=== PATIENT | female | born 1945 | race Caucasian/White ===

== ENCOUNTER → 2016-09-18 | Outpatient (CLI) | payer OTHER ==
[~2016-09-18] MED LIST: B121000 MCG/1 IM; COREG6.25 MG; COUMADIN2 MG PO; DOXYCYLINE50 MG PO; DULCOLAX10 M1 R; K-DUR 1010 MEQ; LASIX20 MG; LOVENOX30 MG/0.3 SC; MILK OF MA400 MG/51 PO; NKHM; NORCO 325 MG-51 TAB PO; NORCO 5-325 TA1 EACH PO; NORCO 7.5-3251 EACH PO; SYNTHROID0.125 MG PO
== END | disposition home or self-care (01) ==
LOC: ORTHO 01:21
DX: S42.91XD Fracture of right shoulder girdle, part unspecified, subsequent encounter for fracture with routine healing (principal); X58.XXXD Exposure to other specified factors, subsequent encounter

== ENCOUNTER → 2016-10-05 | Outpatient (CLI) | payer OTHER ==
[2016-10-05 10:57] LABS: BASO % 0.3 % (0.0-1.0); EOS # 0.3 10*3/uL (0.0-0.4); EOS % 2.7 % (1.0-4.0); HEMATOCRIT 43.5 % (37.0-47.0); HEMOGLOBIN 12.9 g/dl (12.0-16.0); LYMPH # 1.4 10*3/uL (1.3-4.4); LYMPH % 11.6 % (27.0-41.0); MEAN CELL VOLUME 90.1 fl (81.0-99.0); MEAN CORPUSCULAR HGB 26.7 pg (27.0-31.0); MEAN CORPUSCULAR HGB CONC 29.7 g/dl (33.0-37.0); MEAN PLATELET VOLUME 10.4 fl (9.6-12.3); MONO # 0.6 10*3/uL (0.1-1.0); MONO % 4.7 % (3.0-9.0); NEUT # 9.3 10*3/uL (2.3-7.9); NEUT % 80.4 % (47.0-73.0); PLATELET COUNT AUTOMATED 577 10*3/uL (130-400); RED BLOOD COUNT 4.83 10*6/uL (4.10-5.10); RED CELL DISTRI WIDTH 15.4 % (0-14.5); WHITE BLOOD COUNT 11.6 10*3/uL (4.8-10.8)
[2016-10-05 11:05] LABS: BILIRUBIN NEGATIVE (NEGATIVE); BLOOD 3+ (NEGATIVE); CLARITY CLOUDY (CLEAR); COLOR YELLOW (YELLOW); GLUCOSE NEGATIVE (NEGATIVE); KETONE NEGATIVE (NEGATIVE); LEUKO ESTERASE 2+ (NEGATIVE); NITRITE POSITIVE (NEGATIVE); PH 5.5 (5.0-9.0); PROTEIN 1+ (NEGATIVE); SPECIFIC GRAVITY 1.025 (1.005-1.030); UROBILINOGEN 0.2 E.U./dl (0.2-1.0)
[2016-10-05 11:23] LABS: ALBUMIN 3.5 gm/dl (3.1-4.5); BILIRUBIN, TOTAL 0.6 mg/dl (0.2-1.0); POTASSIUM 3.9 mmol/L (3.5-5.1); TOTAL PROTEIN 7.6 gm/dL (6.4-8.2)
[2016-10-05 11:38] LABS: BACTERIA 1+; RBC 16-20 rbc/hpf (0-2); WBC TNTC wbc/hpf (0-5)
== END | disposition home or self-care (01) ==
LOC: LAB 08:37
PROVIDERS: Orthopaedic Surgery
DX: Z01.818 Encounter for other preprocedural examination (principal); S42.201A Unspecified fracture of upper end of right humerus, initial encounter for closed fracture; X58.XXXA Exposure to other specified factors, initial encounter; Y93.89 Activity, other specified; Y92.89 Other specified places as the place of occurrence of the external cause; Y99.8 Other external cause status; I51.7 Cardiomegaly

== ENCOUNTER 2017-11-29 10:48 | Emergency (ER) | payer OTHER ==
[~2017-11-29] VITALS: Ht 162.5 cm; Wt 72.6 kg
[2017-11-29] MEDS ORDERED: ASPIRIN81 M1 PO (10:58)
== END 2017-11-29 12:08 | disposition home or self-care (01) ==
LOC: ED 10:48
DX: S90.121A Contusion of right lesser toe(s) without damage to nail, initial encounter (principal); R03.0 Elevated blood-pressure reading, without diagnosis of hypertension; Z79.82 Long term (current) use of aspirin; Z90.710 Acquired absence of both cervix and uterus; Z79.01 Long term (current) use of anticoagulants; W22.8XXA Striking against or struck by other objects, initial encounter; Y93.89 Activity, other specified; Y92.89 Other specified places as the place of occurrence of the external cause; Y99.8 Other external cause status

== ENCOUNTER 2018-06-09 20:11 | Emergency (ER) | payer OTHER ==
[~2018-06-09] VITALS: Ht 160 cm; Wt 77.1 kg
--- NOTE | ~2018-06-09 | EKG ---
[place], [place] ELECTROCARDIOGRAM REPORT NAME: DONOVAN REYNOLDS UNIT #: [id number] ROOM: DOCTOR: EPIPHANY DRAFT REPORT BIRTHDATE: [birth year] [facility] Test Date: 2018-06-09 Test Time: 21:15:15 Pat Name: DONOVAN REYNOLDS Department: Room: Gender: F Director Business Development: [place] Small : 1945 Requested By: MARLENE MEJIA Order Number: [id number] Reading MD: Kaitlin Perez MD Measurements Intervals [place] Rate: 87 P: 20 RI: 188 QRS: -27 QRSD: 109 T: 55 QT: 381 QTc: 459 Interpretive Statements Sinus rhythm Left atrial enlargement Inferior infarct, old Extensive anterior infarct, old Lateral leads are also involved Baseline wander in lead(s) V1 Electronically Signed On 06-12-2018 12:20:28 PDT by Kaitlin Perez MD CM:EKGRPT:ELECTROCARDIOGRAM REPORT 14 1220 MARLENE MEJIA MD EPIPHANY DRAFT REPORT MARLENE MEJIA MD
--- NOTE | ~2018-06-09 | EKG ---
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
[~2018-06-09 20:11] MED LIST changes: +ASPIRIN81 M1 PO
[2018-06-09] MEDS ORDERED: LEVOTHYROXINE200 MC2 PO (20:20)
[2018-06-09] MEDS ORDERED: CARVEDILOL6.25 MG PO (20:20)
[2018-06-09] MEDS ORDERED: Synthroid,Levo25 MCG PO (20:20)
[2018-06-09] MEDS ORDERED: XARELTO15 M1 PO (20:21)
[2018-06-09] MEDS ORDERED: VITAMIN D50000 UNIT PO (20:21)
[2018-06-09 20:50] LABS: HEMATOCRIT 47.8 % (37.0-47.0); HEMOGLOBIN 14.6 g/dl (12.0-16.0); MEAN CELL VOLUME 86.9 fl (81.0-99.0); MEAN CORPUSCULAR HGB 26.5 pg (27.0-31.0); MEAN CORPUSCULAR HGB CONC 30.5 g/dl (33.0-37.0); MEAN PLATELET VOLUME 10.2 fl (9.6-12.3); PLATELET COUNT AUTOMATED 562 10*3/uL (130-400); RED CELL DISTRI WIDTH 13.9 % (0-14.5); WHITE BLOOD COUNT 26.5 10*3/uL (4.8-10.8)
[2018-06-09 21:08] LABS: ALBUMIN 3.2 gm/dl (3.1-4.5); CREATININE 1.84 mg/dL (0.55-1.02); POTASSIUM 4.2 mmol/L (3.5-5.1); TOTAL CELLS COUNTED 100 #CELLS; TOTAL PROTEIN 7.4 gm/dL (6.4-8.2)
[2018-06-09 21:09] LABS: BURR CELLS FEW; PLATELET SUFFICIENCY HIGH (NORMAL); VACUOLATION OF NEUTROPHILS SLIGHT
[2018-06-09 21:12] LABS: TROPONIN I 1.27 ng/ml (<0.045)
[2018-06-09 21:24] LABS: THYROID STIM HORMONE (HS) 0.006 uIU/ml (0.358-4.75)
== END 2018-06-10 00:38 | disposition short-term general hospital (02) ==
LOC: ED 20:11
PROVIDERS: Emergency Medicine Emergency Medical Services
DX: J96.90 Respiratory failure, unspecified, unspecified whether with hypoxia or hypercapnia (principal); I21.4 Non-ST elevation (NSTEMI) myocardial infarction; J18.9 Pneumonia, unspecified organism; A41.9 Sepsis, unspecified organism; Z87.891 Personal history of nicotine dependence; Z88.1 Allergy status to other antibiotic agents; Z79.899 Other long term (current) drug therapy

== ENCOUNTER 2018-09-19 20:04 | Inpatient (IN) | payer OTHER ==
[~2018-09-19] VITALS: Ht 162.6 cm; Wt 73.7 kg
--- NOTE | ~2018-09-19 | PR ---
[place], [place] PROGRESS NOTE NAME: DONOVAN REYNOLDS UNIT #: [id number] ROOM: 501 DOCTOR: MONICA CARRASQUILLO MD BIRTHDATE: [birth year] DOS: 09/21/2018 SUBJECTIVE: The patient is starting to breathe better with treatment. OBJECTIVE: GENERAL APPEARANCE: The patient is alert and oriented x 3, in no visible distress. VITAL SIGNS: Blood pressure 136/82, heart rate 76 beats per minute, breathing 20 times per minute, temperature 98.6 degrees Fahrenheit. HEENT AND NECK: Exam within normal limits. CARDIOVASCULAR SYSTEM: Heart rate is regular in rate and rhythm. S1 and S2 normally audible. LUNGS: Clear to auscultation. ABDOMEN: Soft, nontender. No obvious organomegaly. Bowel sounds are present. EXTREMITIES: Without significant cyanosis or edema. IMPRESSION: 1. Hypokalemia from diuresis. The patient to be given extra potassium supplements. 2. Acute over chronic systolic type congestive heart failure and also right-sided heart failure, being treated with diuresis with intravenous Bumex. Dr. Hernadez and Cardiology, both following. 3. Bilateral leg swelling, redness and edema. Venous Doppler studies ordered, but results are still not available. 4. Echocardiogram showing moderate valvular aortic stenosis of 1 cm size. 5. Chronic kidney disease stage 3A. 6. Benign essential hypertension, being treated and controlled. 7. Hypothyroidism, replaced with Synthroid. 8. Deep venous thrombosis history. The patient anticoagulated with Xarelto. 9. Vitamin D deficiency, replaced with supplements. 10. Advance adult failure to thrive. The patient is working with physical therapy. We are taking bedsore precautions using an air mattress. MONICA CARRASQUILLO MD CM:PNTRANS [phone] MONICA CARRASQUILLO MD 09/22/18 0146 interface
--- NOTE | ~2018-09-19 | PR ---
[place], [place] PROGRESS NOTE NAME: DONOVAN REYNOLDS UNIT #: [id number] ROOM: 501 DOCTOR: JOSELUIS RODRIGUEZ MD BIRTHDATE: [birth year] DOS: 09/23/2018 CARDIOLOGY PROGRESS NOTE SUBJECTIVE: The patient was seen at her bedside today, 09/23/2018, for followup of her valvular heart disease and paroxysmal atrial fibrillation. She is in very good spirits today and denies any chest pain or dyspnea. She is walking short distances to the bathroom with a walker. She states that her ankles are not swollen and that her breathing is good. Overnight, her blood pressure was noted to be low. Since she is not having any chest pain, we decided to discontinue her nitrates. PHYSICAL EXAMINATION: VITAL SIGNS: Today, her pulse is 100 and regular, blood pressure is 118/60. She is afebrile. NECK: Supple. She has no jugular distention. Carotids are full. LUNGS: Respirations are unlabored. Chest is clear. HEART: Has a regular rhythm. The monitor shows sinus tachycardia. ABDOMEN: Benign. EXTREMITIES: Showed trace edema bilaterally. IMPRESSION: 1. Chronic diastolic heart failure with acute exacerbation -- compensated. 2. Elevated troponin level due to demand ischemia from her hypertension, marked left ventricular hypertrophy, and paroxysmal atrial fibrillation. 3. Chronic renal insufficiency with acute exacerbation. 4. History of deep venous thrombosis for which she is on Xarelto. 5. Moderate aortic stenosis associated with severe left ventricular hypertrophy. PLAN: She seems to be compensated on her current medications, which include atorvastatin 80 mg daily, aspirin 81 mg daily, Xarelto 15 mg daily, carvedilol 6.25 mg b.i.d., levothyroxine 225 mcg daily, and bumetanide 1 mg IV q. 12 hours. We will switch her to p.o., bumetanide, and if she continues to do well, could be discharged from a cardiac standpoint. We will remain available to see her if needed. I thank Dr. Wise for asking our advice regarding her care. [place], [place] PROGRESS NOTE NAME: DONOVAN REYNOLDS UNIT #: [id number] ROOM: [facility] DOCTOR: JOSELUIS RODRIGUEZ MD BIRTHDATE: [birth year] JOSELUIS RODRIGUEZ MD CM:PNMICHELLE 01 11 JOSELUIS RODRIGUEZ MD 09/23/18 1313 interface
--- NOTE | ~2018-09-19 | EKG ---
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: Red Ortega : 1945 Requested By: JOSELUIS RODRIGUEZ Order Number: [id number] Reading MD: Joseluis Rodriguez MD Measurements Intervals [place] Rate: 70 P: 33 GA: 180 QRS: -34 QRSD: 102 T: 133 QT: 353 QTc: 381 Interpretive Statements Sinus rhythm Probable left atrial enlargement LVH with secondary repolarization abnormality Anterior infarct, old Compared to ECG 09/19/2018 Left ventricular hypertrophy now present Early repolarization now present Myocardial infarct finding still present Electronically Signed On 09-20-2018 17:14:30 PST by Joseluis Rodriguez MD CM:EKGRPT:ELECTROCARDIOGRAM REPORT [id number] 1714 JOSELUIS RODRIGUEZ MD EPIPHANY DRAFT REPORT JOSELUIS RODRIGUEZ MD
--- NOTE | ~2018-09-19 | PR ---
[place], [place] PROGRESS NOTE NAME: DONOVAN REYNOLDS UNIT #: [id number] ROOM: 501 DOCTOR: MONICA CARRASQUILLO MD BIRTHDATE: [birth year] DOS: 09/23/2018 SUBJECTIVE: The patient continues to breathe better. She is ambulating to the bathroom with a walker, but she has not received physical therapy. OBJECTIVE: GENERAL APPEARANCE: The patient is alert and oriented x 3, in no visible distress. VITAL SIGNS: Blood pressure 118/60, heart rate 67 beats per minute, breathing 24 times per minute, temperature 98.3 degrees Fahrenheit. HEENT AND NECK: Exam within normal limits. CARDIOVASCULAR SYSTEM: Heart rate is regular in rate and rhythm. S1 and S2 normally audible. LUNGS: Clear to auscultation. ABDOMEN: Soft, nontender. No obvious organomegaly. Bowel sounds are present. EXTREMITIES: Without significant cyanosis or edema. IMPRESSION: 1. The patient with acute over chronic diastolic type congestive heart failure, clinically improving. 2. Hypokalemia from a potassium level of 3.3 from diuresis. I will give her extra potassium supplements. 3. Advanced adult failure to thrive. Physical therapy was asked to work with her, so I can discharge her to home tomorrow. We are taking bedsore precautions and turning her every 2 hours. 4. Hypothyroidism, replaced with Synthroid. 5. Moderate aortic valve stenosis at 1 cm, evaluated by Cardiology. 6. Bilateral leg swelling and history of deep venous thrombosis, but no acute abnormality on venous Dopplers. MONICA CARRASQUILLO MD CM:PNTRANS [phone] MNOICA CARRASQUILLO MD 09/23/18 0947 interface
--- NOTE | ~2018-09-19 | CON ---
[place], [place] REPORT OF CONSULTATION NAME: DONOVAN REYNOLDS UNIT #: [id number] ROOM: 501 DOCTOR: RONALD GRAY MDANTWON BIRTHDATE: [birth year] DOS: 09/21/2018 PULMONARY CONSULTATION, EVALUATION, AND MANAGEMENT REASON FOR CONSULTATION: Assess the patient's symptoms of shortness of breath. REQUESTING PHYSICIAN: Dr. Wise HISTORY OF PRESENT ILLNESS: This is a 72-year-old female patient, who has been admitted to the hospital under the care of Dr. Wise. The patient is not very cooperative with history, was noted cooperative with examination. History would be considered very limited at the present time. Some of the history were reviewed documented by the other physicians note and the emergency notes. This is a 72-year-old white female patient, who has been known with past history of multiple strokes with residual right hemiplegia, lives by herself, stating she has been developing symptoms of increased shortness of breath for the last 3-4 days. The patient has been assessed by the EMS and noted with severely uncontrolled hypertension. She has been brought to the hospital and diagnosis of congestive heart failure was established and she has been admitted to the hospital. Troponin was also noted abnormal. She has been assessed by the cardiac service, Dr. Daniels, and at this time, no further plan of assessment such as cardiac catheterization made because of the patient's uncooperative behavior. The patient stated symptoms of shortness of breath have been decreased, but not completely resolved. Denies symptoms of fever or chills. She does have some cough, which has been noted mild and nonproductive. She denies symptoms of chest pain. Denies symptoms of hemoptysis. REVIEW OF SYSTEMS: CONSTITUTIONAL: Complaining of fatigue and tiredness. Denies symptoms of fever or chills. EYES: Denies any burning, discharge, redness or diplopia. EARS, NOSE, AND THROAT: Denies sore throat, hoarseness, otalgia, postnasal drainage or epistaxis. CARDIOVASCULAR: Denies anginal pain. Noted with edema of the lower extremities intermittently. Symptoms of orthopnea were present. There were no palpitations. GASTROINTESTINAL: Denies dysphagia, nausea, vomiting, diarrhea, abdominal pain, hematemesis, or melena. SKIN: Denies abnormal lesions or rashes. MUSCULOSKELETAL: No acute joint pain, redness, or tenderness. Remaining systems were reviewed, they were noted all negative. PAST MEDICAL HISTORY: Known with history of: 1. Permanent atrial fibrillation. 2. Hypothyroidism. 3. Failure to thrive. 4. Coronary artery disease. 5. Chronic obstructive pulmonary disease. 6. Hypothyroidism. [place], [place] REPORT OF CONSULTATION NAME: DONOVAN REYNOLDS UNIT #: [id number] ROOM: [facility] DOCTOR: ANTWON JAMES MD BIRTHDATE: [birth year] 7. Chronic hypoxic respiratory failure, use of oxygen 3 liters nasal cannula. 8. Cerebrovascular accident with residual hemiparesis. 9. Vitamin D deficiency. 10. Hypothyroidism. 11. History of deep venous thrombosis. SOCIAL HISTORY: The patient lives by herself at this time. Noted tobacco use as teenager, pack of cigarettes per day, which has been discontinued many years ago. Denies alcohol or illicit drug use. FAMILY HISTORY: Unknown to the patient. PAST SURGICAL HISTORY: She denies any past surgeries. MEDICATIONS: Current medications administered were noted as use of Lipitor, aspirin, Xarelto 15 mg, Coreg, Bumex intravenously, levothyroxine, and other p.r.n. medications. DRUG ALLERGY: NOTED ALLERGIC TO ERYTHROMYCIN, CAUSING SKIN HIVES. PHYSICAL EXAMINATION: GENERAL: A 72-year-old female, currently noted comfortably on her bed without any distress during this morning of assessment. Height of 5 feet 4 inches, weight of 177 pounds, BMI 30.4. VITAL SIGNS: Normal temperature, respiratory rate 18-20, heart rate 74-80, blood pressure 118/64 to 128/76. The pulse oxygen saturation was recorded as 97% on 2 liters nasal cannula, on 6 liters cannula in the emergency room with 96% saturation. HEENT: Head was atraumatic. Eyes nonicterus. NECK: Supple. CARDIOVASCULAR: S1 and S2 audible. LUNGS: Noted decreased breaths noted essentially in the lower portion of the lungs without any wheezing or crackles at the present time. ABDOMEN: Soft, nontender. Bowel sounds present. EXTREMITIES: Without any acute edema. CENTRAL NERVOUS SYSTEM: Hemiparesis. VISIBLE SKIN: No lesions or rashes. MUSCULOSKELETAL: The patient is without any major deformities. LABORATORY AND DIAGNOSTIC DATA: CBC that was done on 09/19/2018, WBC count 26.6, hemoglobin and hematocrit normal, platelet count was normal, 95% segmented neutrophils. No CBC was repeated afterwards. CMP on 09/19/2018, BUN 23, creatinine 1.45, glucose was noted as 129. The BMP that was done this morning, BUN 27, creatinine 1.79. Troponin was noted at 0.41. Potassium 3.3. Blood cultures from 09/15/2018 was noted without any bacterial growth. Chest x-ray that was done on 09/19/2018 shows possibility of congestive heart failure can be considered with interstitial edema and small bilateral pleural effusions. IMPRESSION: 1. The patient has been currently admitted to the hospital with the possibility [place], [place] REPORT OF CONSULTATION NAME: DONOVAN REYNOLDS UNIT #: [id number] ROOM: [facility] DOCTOR: RONALD GRAY MD,ANTWON BIRTHDATE: [birth year] of acute myocardial injury with congestive heart failure secondary to flash pulmonary edema and uncontrolled hypertension very likely. 2. The patient with possibility of chronic kidney injury superimposed on acute kidney injury secondary to prerenal azotemia, diuretics and combination of the above. 3. The patient with past history of tobacco use and chronic obstructive pulmonary disease without any evidence of acute exacerbation with current assessment. 4. History of chronic hypoxic respiratory failure. PLAN OF MANAGEMENT: The patient will be ordered a new chest x-ray to reassess the progression of the current congestive heart failure and possible pleural fluid. PA and lateral-view chest x-ray will be ordered. Continue diuretics; however, close monitoring of electrolytes for this patient and others to be continued. Other supportive therapy and plan of management. Obtain a CT scan of chest if the chest x-ray is noted with inadequate assessment of the hemithorax. No additional immediate changes at this time in the treatment will be recommended. Further treatment changes will be ordered based on the assessment of the new informative data. ANTWON CARDENAS MD CM:CONSTR:REPORT OF CONSULTATION 1348 09/21/18 2349 interface
--- NOTE | ~2018-09-19 | EKG ---
[place], [place] ELECTROCARDIOGRAM REPORT NAME: DONOVAN REYNOLDS UNIT #: [id number] ROOM: 407 DOCTOR: LATRICE DRAFT REPORT BIRTHDATE: [birth year] [facility] Test Date: 2018-09-19 Test Time: 20:13:13 Pat Name: DONOVAN REYNOLDS Department: Room: 407 Gender: F General Adjuster: Sakina Briones : 1945 Requested By: RONN MERINO Order Number: [id number] Reading MD: Zhou Daniels MD Measurements Intervals [place] Rate: 73 P: 40 ND: 180 QRS: -11 QRSD: 106 T: 73 QT: 417 QTc: 460 Interpretive Statements Sinus rhythm Left atrial enlargement Anterior infarct, old Borderline ST elevation, inferior leads Baseline wander in lead(s) V1,V6 Compared to ECG 06/09/2018 21:15:15 No significant change Electronically Signed On 09-20-2018 17:04:25 PST by Zhou Daniels MD CM:EKGRPT:ELECTROCARDIOGRAM REPORT 12 1704 RONN [place]OVER DRAFT REPORT RONN MERINO DO
--- NOTE | ~2018-09-19 | PR ---
[place], [place] PROGRESS NOTE NAME: DONOVAN REYNOLDS UNIT #: [id number] ROOM: 501 DOCTOR: JOSELUIS RODRIGUEZ MD BIRTHDATE: [birth year] DOS: 09/21/2018 SUBJECTIVE: The patient was seen at her bedside today for followup of multiple coronary risk factors, previous strokes and an elevation in troponin associated with heart failure on admission. I reviewed her echocardiogram yesterday and it showed severe concentric left ventricular hypertrophy. Left ventricular systolic function is normal and there were no obvious wall motion abnormalities. Aortic valve is sclerotic with moderate stenosis. This does not appear to be severe enough to require any remedial surgery. The patient was much more pleasant this afternoon, but still stated that she did not want to have a lot done. Specifically, when we talked about stress testing and catheterization, she stated that she would prefer, we just treat her empirically. PHYSICAL EXAMINATION: VITAL SIGNS: Today, her pulse is 70, blood pressure is 129/62. She is afebrile. NECK: Supple. She has no jugular distention. LUNGS: Respirations are unlabored. She has decreased breath sounds at the bases. LABORATORY DATA: Hemoglobin is 12.3, hematocrit 41.3. Sodium is 144, potassium 3.3, BUN 27, and creatinine 1.79. IMPRESSION: 1. Chronic diastolic heart failure with acute exacerbation. 2. Elevated troponin level. This is most likely due to demand ischemia from her hypertension and marked left ventricular hypertrophy. She does not give us any signs of a non-ST segment elevation myocardial infarction. 3. Chronic kidney disease with acute exacerbation. 4. History of deep venous thrombosis for which the patient is on Xarelto. PLAN: I would treat her with blood pressure control and diuresis as needed. No other cardiac workup is being contemplated at this time and this comports with the patient's expressed wishes. I thank Dr. Wise for asking our advice regarding her care. [place], [place] PROGRESS NOTE NAME: MIRELLA REYNOLDSA Pop UNIT #: [id number] ROOM: [facility] DOCTOR: JOSELUIS RODRIGUEZ MD BIRTHDATE: [birth year] JOSELUIS RODRIGUEZ MD CM:PNTRANS [phone] JOSELUIS RODRIGUEZ MD 09/23/18 1219 interface
--- NOTE | ~2018-09-19 | WRIGHTHP ---
[place], [place] PATIENT HISTORY AND PHYSICAL EXAM NAME: [facility]OLDS [id number] UNIT #: [id number] ROOM: 407 DOCTOR: MONICA CARRASQUILLO MD BIRTHDATE: [birth year] DOS: 09/19/2018 HISTORY OF PRESENT ILLNESS: The patient is a 72-year-old female with a past medical history of; 1. Chronic atrial fibrillation. 2. Hypothyroidism. 3. Adult failure to thrive. 4. Coronary artery disease. 5. Chronic respiratory failure and COPD. 6. Hypothyroidism. 7. Vitamin D deficiency. 8. CVA with left hemiparesis. 9. History of deep venous thrombosis. The patient presented to [place] [facility] with 3-day complaints of increasing shortness of breath. The patient had labored breathing and was requiring oxygen, which she normally does not at home. The patient was on 6 liters of oxygen by nasal cannula. She had wheezing and bilateral leg edema. The patient had severe dyspnea with exertion. The patient was evaluated in the Emergency Department and found to have elevated troponin I levels and found to be in acute congestive heart failure and recommended for admission and further management and Cardiology consulted. Some systolic dysfunction. After admission, the patient was still short of breath. No complaints of any chest pains or angina-like symptoms, no dizziness or fainting episodes. REVIEW OF SYSTEMS: RESPIRATORY: The patient with increased shortness of breath. GASTROINTESTINAL: No nausea, vomiting, diarrhea or constipation. CARDIOVASCULAR: No complaint of chest pains or palpitations. FAMILY HISTORY: Noncontributory. SOCIAL HISTORY: Lives at home. Stopped smoking cigarettes. Denies any alcohol or drug abuse. HOME MEDICATIONS: The patient takes Coreg, vitamin D, levothyroxine and Xarelto at home. PHYSICAL EXAMINATION: GENERAL: Alert and oriented x 3, somewhat short of breath, but in no visible distress. Generalized weakness. VITAL SIGNS: Blood pressure 132/58, heart rate 80 beats per minute, breathing 20 times per minute and temperature 98 degrees Fahrenheit. HEENT AND NECK: Extraocular movements are intact. Sclerae are anicteric. Oral mucosa is moist and clean. No obvious facial weakness. Neck is supple without any lymphadenopathy. No thyromegaly. No JVD. No carotid arterial bruits. LUNGS: Decreased breath sounds all over and mild expiratory wheezing. CARDIOVASCULAR SYSTEM: Heart rate is regular in rate and rhythm. S1 and S2 normally audible. No significant murmur or any other abnormal cardiac sounds. ABDOMEN: Soft, nontender. No obvious organomegaly. Bowel sounds are present. [place], [place] PATIENT HISTORY AND PHYSICAL EXAM NAME: DONOVAN REYNOLDS UNIT #: [id number] ROOM: 407 DOCTOR: MONICA CARRASQUILLO MD BIRTHDATE: [birth year] No obvious herniation. EXTREMITIES: Bilateral leg edema 2+ with redness and warmth of the skin of the lower extremities. CENTRAL NERVOUS SYSTEM: Alert and oriented x 3. Cranial nerves II-XII are intact. Speech is normal. The patient is able to move all extremities. Normal muscle strength. Deep tendon reflexes are equal on both sides. Plantars were downgoing. LABORATORY DATA: Troponin levels elevated to 1.01. BUN and creatinine 23 and 1.4. ProBNP elevated to 17,000. IMPRESSION AND PLAN: 1. The patient presenting with acute systolic type congestive heart failure. She also has a history of right-sided heart failure with chronic leg edema and deep vein thrombosis. I will get a Cardiology and Pulmonary consult because she has interstitial lung changes also on chest x-ray, which are progressive and she is being diuresed with IV Bumex. 2. Bilateral leg swelling, redness, warmth and previous history of deep vein thrombosis for which she is already anticoagulated. I will check venous Dopplers to see if there is any progression of deep vein thrombosis. 3. Acute non-ST segment elevation myocardial infarction with some elevation of troponin I levels. The patient is being followed by Cardiology and she is on a toter. 4. Chronic kidney disease, stage 3A. 5. Benign essential hypertension. The patient to be continued on Coreg and blood pressures to be monitored and treated. 6. Hypothyroidism, replace with Synthroid. 7. History of deep venous thrombosis. The patient is anticoagulated with Xarelto, which has been continued. 8. Vitamin D deficiency, replaced with supplements. 9. Advance adult failure to thrive and ambulatory dysfunction. The patient is to work with physical therapy. The patient was at home and normally walks with the help of walker. MONICA CARRASQUILLO MD CM:HISPHYS:PATIENT HISTORY AND PHYSICAL EXAMINATION 40 16 MONICA CARRASQUILLO MD 09/20/182117 interface
--- NOTE | ~2018-09-19 | PR ---
[place], [place] PROGRESS NOTE NAME: DONOVAN REYNOLDS UNIT #: [id number] ROOM: 501 DOCTOR: RONALD GRAY MD,ANTWON BIRTHDATE: [birth year] DOS: 09/24/2018 PULMONARY PROGRESS NOTE SUBJECTIVE: She has been noted comfortable at this time. Denies symptoms of fever or chills. Denies symptoms of hemoptysis. She denies symptoms of nausea or vomiting. Shortness of breath continued to resolve progressively. OBJECTIVE: VITAL SIGNS: Normal temperature, respiratory rate 20, heart rate 73, blood pressure 150/73. Pulse oxygen saturation on room air 96% saturation. HEENT: Head was atraumatic. Eyes nonicterus. NECK: Supple. CARDIOVASCULAR: S1, S2 heard. LUNGS: Clear to auscultation bilaterally. ABDOMEN: Soft, nontender. Bowel sounds present. EXTREMITIES: No acute edema. IMPRESSION: 1. Gradual progressive resolution noted in congestive heart failure and respiratory symptoms with the diuretic therapy. 2. History of chronic obstructive pulmonary disease. PLAN OF MANAGEMENT: Continue current therapy, plan of management, and discharge planning per primary care physician. The patient could be discharged today when it was necessary to the home settings if appropriate and stable for other medical conditions and clearance from Cardiology services. ANTWON CARDENAS MD CM:PNTRANS [phone] ANTWON GRAY MD 09/25/18 0120 interface
--- NOTE | ~2018-09-19 | PR ---
[place], [place] PROGRESS NOTE NAME: DONOVAN REYNOLDS UNIT #: [id number] ROOM: [facility] DOCTOR: ANTWON JAMES MD BIRTHDATE: [birth year] DOS: 09/22/2018 SUBJECTIVE: She has been noted comfortable at this time reporting reduction in symptoms of shortness of breath. There were no symptoms of chest pain reported by the patient. There were no symptoms of hemoptysis, fever or chills as stated by the patient. She stated that shortness of breath has improved gradually. There were no symptoms of cough reported. OBJECTIVE: VITAL SIGNS: For the patient which were recorded showed normal temperature, respiratory rate 16, heart rate 65, blood pressure ____. Pulse oxygen saturation on room air was 91% saturation. HEENT: Head was atraumatic. Eyes nonicterus. NECK: Supple. CARDIOVASCULAR: S1, S2 audible. LUNGS: Noted without any wheezing or crackles this morning of assessment. Breaths are noted mild to moderately decreased bilaterally. ABDOMEN: Soft, nontender. EXTREMITIES: No acute edema. LABORATORY DATA: BMP today: BUN 27, creatinine 1.60. Chest x-ray yesterday noted improvement in congestive heart failure findings and the pleural effusions. IMPRESSION: 1. The patient has been resolving with current congestive heart failure with symptoms of shortness of breath. 2. The patient with chronic obstructive pulmonary disease that has been noted stable at present time. 3. Pleural fluid noted small was resolving. 4. Elevation of BUN and creatinine was also noted with resolving acute kidney injury. PLAN OF THERAPY: Continue current plan of management. The patient's sleep responding and improving with progressive current medical management. Continue to maximize the cardiac management. Bronchodilators therapy, plan of management, care plan of treatment. [place], [place] PROGRESS NOTE NAME: DONOVAN REYNOLDS UNIT #: [id number] ROOM: [facility] DOCTOR: ANTWON JAMES MD BIRTHDATE: [birth year] ANTWON CARDENAS MD CM:PNTRANS [phone] ANTWON GRAY MD 09/22/18 1432 interface
--- NOTE | ~2018-09-19 | DS ---
[place], [place] DISCHARGE SUMMARY NAME: DONOVAN REYNOLDS [facility] #: [id number] UNIT #: [id number] ROOM: 501 DOCTOR: MONICA CARRASQUILLO MD BIRTHDATE: [birth year] DOS: 09/24/2018 DISCHARGE DIAGNOSES: 1. 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 2. Moderate aortic stenosis, 1 cm2 opening. 3. Hypokalemia. 4. Advanced adult failure to thrive. 5. Hypothyroidism. 6. Bilateral leg swelling and history of deep vein thrombosis in the past. 7. Chronic atrial fibrillation. 8. Hypothyroidism. 9. Coronary artery disease of [place] vessels. 10. Chronic obstructive pulmonary disease. 11. Hypothyroidism. 12. Vitamin D deficiency. 13. Cerebrovascular accident with left hemiparesis. HOSPITAL COURSE: The patient presented to the Emergency Department at [facility] with 3-day complaints of increasing shortness of breath, labored breathing and she was requiring oxygen at the rate of 6 liters per minute by nasal cannula. The patient had bilateral wheezing and bilateral leg edema and severe shortness of breath and dyspnea on exertion. The patient was evaluated in the Emergency Department and found to be in acute congestive heart failure. The patient was admitted and Cardiology was consulted. The patient was diuresed with IV Bumex and she is feeling much better, congestive heart failure has resolved. 1. Acute combined systolic/diastolic-type congestive heart failure, improved with treatment with IV Bumex and the patient will be continued on oral Bumex at home. The patient's serum electrolytes were monitored. 2. Hypokalemia, replaced with potassium supplements. 3. Advance adult failure to thrive. The patient was kept on physical therapy and she is able to ambulate independently. 4. Moderate aortic stenosis, 1 cm2 on echocardiogram. 5. Hypothyroidism, replaced with Synthroid supplements. LABORATORY DATA: BUN and creatinine 27 and 1.6. Potassium levels improved to 4.7, normal with extra potassium supplements. Chest x-ray showed improvement in pleural effusion. Venous Dopplers of the lower extremities showed no DVT. Blood cultures were negative. DISCHARGE MANAGEMENT: Bumex 1 mg daily, Lipitor 80 mg a day, aspirin 81 mg a day, Xarelto 15 mg daily, Coreg 6.25 mg b.i.d., levothyroxine 225 mcg daily. [place], [place] DISCHARGE SUMMARY NAME: DONOVAN REYNOLDS UNIT #: [id number] ROOM: [facility] DOCTOR: MONICA CARRASQUILLO MD BIRTHDATE: [birth year] MONICA CARRASQUILLO MD CM:MELIA [phone] MONICA CARRASQUILLO MD 09/25/18 0846 interface
--- NOTE | ~2018-09-19 | PR ---
[place], [place] PROGRESS NOTE [id number] UNIT #: [id number] ROOM: [facility] DOCTOR: RONALD GRAY MD,ANTWON BIRTHDATE: [birth year] DOS: 09/23/2018 SUBJECTIVE: The patient reported significant improvement continued in the symptoms of shortness of breath. There was mild cough noted previously was resolved. There were no symptoms of chest pain or hemoptysis reported by the patient. OBJECTIVE: VITAL SIGNS: Normal temperature, respiratory rate 24, heart rate 67, blood pressure 118/60. The pulse oxygen saturation on room air 92% saturation. HEENT: Examination shows head was atraumatic. Eyes nonicterus. CARDIOVASCULAR: S1, S2 is audible. LUNGS: Without any wheeze or crackles. ABDOMEN: Soft, nontender. IMPRESSION: Aortic stenosis, congestive heart failure with history of chronic obstructive pulmonary disease as well. PLAN OF MANAGEMENT: No changes from the pulmonary standpoint at this time. Continue the patient's current medical plan of management at this time. She is responding to the current therapy treatment. ANTWON CARDENAS MD CM:PNTRANS [phone] ANTWON GRAY MD 09/23/18 1432 interface
--- NOTE | ~2018-09-19 | EKG ---
[place], [place] ELECTROCARDIOGRAM REPORT NAME: DONOVAN REYNOLDS UNIT #: [id number] ROOM: 407 DOCTOR: LATRICE DRAFT REPORT BIRTHDATE: [birth year] [facility] Test Date: 2018-09-19 Test Time: 21:12:35 Pat Name: DONOVAN REYNOLDS Department: Room: 407 Gender: F Registered Public Surveyor: Sakina Briones : 1945 Requested By: RONN MERINO Order Number: [id number] Reading MD: Zhou Daniels MD Measurements Intervals [place] Rate: 76 P: 13 HI: 178 QRS: -30 QRSD: 110 T: 66 QT: 409 QTc: 460 Interpretive Statements Sinus rhythm Left atrial enlargement Abnormal R-wave progression, late transition Compared to ECG 06/09/2018 21:15:15 No significant change Electronically Signed On 09-20-2018 17:08:43 PST by Zhou Daniels MD CM:EKGRPT:ELECTROCARDIOGRAM REPORT 11 [id number] RONN GLOVER DRAFT REPORT RONN MERINO DO
--- NOTE | ~2018-09-19 | PR ---
[place], [place] PROGRESS NOTE [id number] #: [id number] ROOM: 501 DOCTOR: MONICA CARRASQUILLO MD BIRTHDATE: [birth year] DOS: 09/22/2018 SUBJECTIVE: The patient has significantly improved in her shortness of breath with treatment. OBJECTIVE: VITAL SIGNS: Blood pressure 120/46, heart rate 70 beats per minute, breathing 18 times a minute, temperature 98 degrees Fahrenheit. GENERAL APPEARANCE: The patient is alert and oriented x 3, in no visible distress. Generalized weakness. HEENT AND NECK: Exam within normal limits. CARDIOVASCULAR SYSTEM: Heart rate is regular in rate and rhythm. S1 and S2 normally audible. LUNGS: Clear to auscultation. ABDOMEN: Soft, nontender. No obvious organomegaly. Bowel sounds are present. EXTREMITIES: Without significant cyanosis or edema. IMPRESSION: 1. The patient with acute over chronic diastolic type congestive heart failure, improving with diuresis. 2. Elevated troponin levels from demand ischemia. Cardiology following. 3. Chronic deep venous thrombosis treated with anticoagulation. Repeat venous Dopplers are normal and leg edema is improving. 4. Vitamin D deficiency, replaced with supplements. 5. Hypothyroidism, replaced with Synthroid. 6. Chronic kidney disease, stage 3A. 7. Echocardiogram showing moderate aortic valve stenosis, 1 cm size. 8. Hypokalemia from diuresis. I will give the patient potassium supplements. MONICA CARRASQUILLO MD CM:PNTRANS 8 [phone] MONICA CARRASQUILLO MD [id number]/22/182151 interface
[~2018-09-19 20:04] MED LIST changes: +CARVEDILOL6.25 MG PO; +LEVOTHYROXINE200 MC2 PO; +Synthroid,Levo25 MCG PO; +VITAMIN D50000 UNIT PO; +XARELTO15 M1 PO
[2018-09-19 20:09] VITALS: BP 124/68
[2018-09-19 20:44] LABS: HEMATOCRIT 41.3 % (37.0-47.0); HEMOGLOBIN 12.3 g/dl (12.0-16.0); MEAN CELL VOLUME 87.3 fl (81.0-99.0); MEAN CORPUSCULAR HGB CONC 29.8 g/dl (33.0-37.0); MEAN PLATELET VOLUME 9.8 fl (9.6-12.3); PLATELET COUNT AUTOMATED 615 10*3/uL (130-400); RED BLOOD COUNT 4.73 10*6/uL (4.10-5.10); RED CELL DISTRI WIDTH 14.1 % (0-14.5); WHITE BLOOD COUNT 26.6 10*3/uL (4.8-10.8)
[2018-09-19 20:55] LABS: INTERNATIONAL NORM RATIO 1.4 (2.0-3.5)
[2018-09-19 21:00] LABS: ALBUMIN 3.1 gm/dl (3.1-4.5); CREATININE 1.45 mg/dL (0.55-1.02); TOTAL PROTEIN 7.3 gm/dL (6.4-8.2)
[2018-09-19 21:03] LABS: TROPONIN I 0.248 ng/ml (<0.045)
--- NOTE | 2018-09-19 21:04 | NUR ---
DR. MERINO NOTIFIED OF CRITICAL TROPONIN.
[2018-09-19 21:09] LABS: PLATELET SUFFICIENCY HIGH (NORMAL); TOTAL CELLS COUNTED 100 #CELLS
[2018-09-19 21:40] VITALS: BP 134/44
--- NOTE | 2018-09-19 21:40 | NUR ---
A 72, admitted to 4E, under the services of Dr. FOREIGN JEFFRIES,MONICA Erickson with a diagnosis of CHF/RESPIRATORY FAILURE/ELEVATED TROPONIN. Chief complaint is SHORTNESS OF BREATH. Patient arrived via stretcher from ER. Monitor applied. Initial assessment completed. Vital signs taken and recorded. DR. FOREIGN JEFFRIES,MONICA Erickson notified of admission to the unit. Orders received. See assessment for past medical history, medications and allergies. Patient and/or family oriented to unit. visitation policy reviewed. Clothing/patient valuable form completed. LUZ MARIA MARINELLI
[2018-09-19 21:58] VITALS: BP 132/44
--- NOTE | 2018-09-19 22:31 | NUR ---
Contacted Dr. Wise for admission orders.
--- NOTE | 2018-09-20 00:43 | NUR ---
Contacted Dr. Wise regarding critical troponin of 0.784. See new orders.
--- NOTE | 2018-09-20 00:52 | NUR ---
Consult call placed for Dr. Daniels, awaiting call back.
--- NOTE | 2018-09-20 01:00 | NUR ---
Spoke with Dr. Daniels regarding consult, will see in AM.
[2018-09-20 03:22] LABS: CREATININE 1.45 mg/dL (0.55-1.02); POTASSIUM 3.9 mmol/L (3.5-5.1)
--- NOTE | 2018-09-20 03:37 | NUR ---
Contacted Cardiology regarding elevated troponin of 1.010, awaiting call back.
--- NOTE | 2018-09-20 03:45 | NUR ---
Spoke with Dr. Daniels regarding troponin of 1.010, informed him that I ordered STAT EKG. No new orders at this time.
[2018-09-20 08:20] VITALS: BP 130/86
--- NOTE | 2018-09-20 08:35 | NUR ---
DONOVAN REYNOLDS [id number] Please refer to the physician's history and physical for past medical history, comorbid conditions, and allergies. Diagnosis: CHF RESPIRATORY FAILURE ELEVATED TROPONIN Jose Score: 16,AT RISK WOUND DESCRIPTIONS: This nurse introduced self to patient and she stated I don't understand why a wound care nurse would be seeing me when I have no wounds. This nurse refused skin assessment at this time. Patient is not requesting follow up care due to patient stating she has no open wounds at this time. Surface the patient is resting on: Position Pro SKIN PREVENTION RECOMMENDATION: 1. Pressure redistribution support surface as appropriate 2. Elevate heels 3. Remove boots/TEDS every shift and reapply 4. Head of bed 30 degrees as tolerated 5. Assess nutrition and hydration 6. Manage moisture 7. Avoid the use of containment devices while in bed 8. Use absorptive products on surfaces limit layers of linens on bed 9. Turn and reposition every 1-2 hours in bed and every 1 hour in chair as tolerated 10. Weight shifts every 15 minutes while up in chair 11. Offloading with pillows or device to keep heels elevated off bed 12. Monitor skin at least every shift 13. Inspect under medical devices twice a day
--- NOTE | 2018-09-20 09:00 | NUR ---
Manager Power in to talk to patient. Patient states lives at home alone with her family checking in on her. There are 0 steps in the home. Physician: Dr. Lamar Jones [facility]: [facility] Home health services: [facility] non-skilled aides 5 days a week for 2.5 hours daily Patient's level of ADLs: MINIMAL ASSIST Patient has working utilities: yes DME: walker Follow-up physician's appointment after d/c: she prefers to make her own follow up appt after discharge Does patient want to access PORTAL?: no Discharge plan discussed with patient. She lives at home alone with her family checking in on her. She is independent in her ADLs and ambulates with a walker. Discussed home health care services and she currently has [facility] non-skilled aides 5 days a week for 2.5 hours daily. When medically stable she will be discharged to home with the resumption of her non-skilled aides. LITA VILA
[2018-09-20 12:00] VITALS: BP 98/79
[2018-09-20 16:00] VITALS: BP 132/58
--- NOTE | 2018-09-20 19:50 | NUR ---
Patient is awake, alert, and oriented x3 resting in bed with easy and regular respers on 4L O2 via nasal cannula. Assessment is complete with no c/o or s/s of distress noted at this time. Bed is low, locked, and call light is within reach. See shift assessment.
[2018-09-20 20:00] VITALS: BP 118/64
--- NOTE | 2018-09-20 21:10 | NUR ---
2200 Medications administered at this time, patient tolerated well. Call light is within reach.
[2018-09-21] VITALS: BP 134/68
--- NOTE | 2018-09-21 01:38 | NUR ---
0000 Medication administered at this time. Patient tolerated well, call light is within reach.
[2018-09-21 06:12] LABS: CREATININE 1.79 mg/dL (0.55-1.02); POTASSIUM 3.3 mmol/L (3.5-5.1)
[2018-09-21 06:23] LABS: TROPONIN I 0.414 ng/ml (<0.045)
--- NOTE | 2018-09-21 06:28 | NUR ---
0600 Medications given at this time, patient tolerated well. Call light is within reach.
--- NOTE | 2018-09-21 07:05 | NUR ---
Spoke with Dr. Hernadez regarding consult.
--- NOTE | 2018-09-21 07:54 | NUR ---
PHYSICAL THERAPY Nursing screen received. PT orders also received, Thank you. Fransisca Ruiz,PT
[2018-09-21 08:00] VITALS: BP 128/76; BP 136/82
[2018-09-21 12:00] VITALS: BP 129/62
[2018-09-21 16:00] VITALS: BP 124/55
--- NOTE | 2018-09-21 19:16 | NUR ---
PHYSICAL THERAPY PAtient respectfully declines PT this date. Will attempt PT at a later date. Thank you for this referral. Fransisca Ruiz,PT
[2018-09-21 20:00] VITALS: BP 132/73
--- NOTE | 2018-09-21 22:00 | NUR ---
PT. DROWSY; AROUSES EASILY. VERY AGITATED UPON BEING WOKEN UP FOR 10 P.M. MEDICATIONS.
[2018-09-22] VITALS: BP 120/46
--- NOTE | 2018-09-22 00:55 | NUR ---
WOKE PATIENT UP TO APPLY NITRO PASTE. PT. VERY AGITATED & STATES "DON'T YOU PEOPLE BELIEVE IN LETTING YOUR PATIENTS SLEEP." INFORMED PATIENT THAT SHE WAS ORDERED MEDICATION AT MIDNIGHT. APPLIED NITROPASTE TO PT'S UPPER RIGHT ARM & REMOVED OLD ONE FROM UPPER LEFT ARM. PT. FALLS BACK TO SLEEP EASILY. CALL LIGHT WITHIN REACH.
--- NOTE | 2018-09-22 02:00 | NUR ---
RESTING IN BED WITH EYES CLOSED. 02 REMAINS INTACT. CALL LIGHT WITHIN REACH.
--- NOTE | 2018-09-22 04:00 | NUR ---
RESTING IN BED WITH EYES CLOSED; CALL LIGHT WITHIN REACH.
[2018-09-22 07:23] LABS: CREATININE 1.6 mg/dL (0.55-1.02); POTASSIUM 3.3 mmol/L (3.5-5.1)
[2018-09-22 08:00] VITALS: BP 126/68
--- NOTE | 2018-09-22 08:30 | NUR ---
Patient resting quietly with no c/o discomfort. Respirations easy and regular. Vital signs stable. No overt distress. WILLIAM FATIMA R
--- NOTE | 2018-09-22 09:00 | NUR ---
Management Coordinator in to see patient. No new needs or request at this time. She denies any home needs. When medically stable she will be discharged to home.
[2018-09-22 12:00] VITALS: BP 101/49
[2018-09-22 16:00] VITALS: BP 96/60
--- NOTE | 2018-09-22 17:45 | NUR ---
STRATEGIC MARKETING MANAGER CALLED WITH PT INCREASING RATE WITH PVC'S. STRIPS BROUGHT UP TO FLOOR. STRIPS SHOWN TO DR RODRIGUEZ WHO WAS ON THE FLOOR.
[2018-09-22 20:00] VITALS: BP 104/90; BP 98/58
[2018-09-23] VITALS: BP 129/50
--- NOTE | 2018-09-23 00:58 | NUR ---
PATIENT AT THIS TIME AMBULATED WITH WALKER TO BATHROOM WITH TWO ASSIST. PATIENT NOT DEPENDENT ON OXYGEN SO IT WAS REMOVED. WHEN PATIENT RETURNED TO BED 10 MINUTES LATER, PULSE OX WAS 94% ON ROOM AIR. PATIENT STATED SHE NEVER FELT SHORT OF BREATH, AND WOULD LIKE TO SEE IF SHE COULD STAY OF THE OXYGEN. THIS NURSE STATED WE WOULD RECHECK HER PULSE OX IN THE MORNING
[2018-09-23 06:00] VITALS: BP 116/58
--- NOTE | 2018-09-23 07:58 | NUR ---
Shift chart check completed.
[2018-09-23 08:00] VITALS: BP 118/60
--- NOTE | 2018-09-23 09:00 | NUR ---
Horticulture Instructor in to see patient. No new needs or request at this time. She currently has [facility] non-skilled aides 5 days a week for 2.5 hours daily. When medically stable she will be discharged to home with resumption of her [facility] services.
[2018-09-23 12:00] VITALS: BP 136/82
--- NOTE | 2018-09-23 14:57 | NUR ---
PHYSICAL THERAPY PAtient evaluated on 5 after significant encouragement, full evaluation to follow. Continue with PT as per plan of care with fall precautions. PAtient is high complexity via chart review, tests and evaluation: [id number]. Thank you for this referral. Fransisca Ruiz,PT
[2018-09-23 16:00] VITALS: BP 123/59
--- NOTE | 2018-09-23 18:04 | NUR ---
DR QIU CALLED BECAUSE PATIENT'S JANSEN CATHETER IS LEAKING. OK TO REMOVE. WILL MONITOR FOR BLADDER RETENTION.
--- NOTE | 2018-09-23 18:20 | NUR ---
PATIENT REFUSES TO HAVE JANSEN CATHETER REMOVED. CATHETER WAS KINKED, READJUSTED AND TAPED TO LEG. WILL MONITOR FOR LEAKING PF CATHETER.
[2018-09-23 20:00] VITALS: BP 124/54
[2018-09-24] VITALS: BP 107/59
--- NOTE | 2018-09-24 01:05 | NUR ---
24HR CHART CHECK COMPLETED.
[2018-09-24 04:00] VITALS: BP 89/41
--- NOTE | 2018-09-24 07:57 | NUR ---
Shift chart check completed.
[2018-09-24 08:00] VITALS: BP 142/68
--- NOTE | 2018-09-24 08:15 | NUR ---
PHYSICAL THERAPY Patient seen this am 1:1 for therapy visit and was supine in bed upon therapist arrival. Patient reports no c/o's pain this morning and was a little fiesty at first, but still cooperative in transfering supine to sit EOB with CGA x 1. Patient then transfers sit to stand, SBA, ambulating with use of wh walker, 40'x 1, CGA, demonstrating uneven stride and requiring v/c for improved walker safety / navigation. Patient returned to supine in bed with a little mild fatigue noted and remained with call light, telephone, tray table and bed alarm activated. Will continue per POC as tolerated, total treatment time 14 minutes. Fermin Malone, SETTER HELPER
[2018-09-24 12:00] VITALS: BP 150/73
--- NOTE | 2018-09-24 14:00 | NUR ---
PATIENT COMPLAINING ABOUT SHOULDER PAIN AND NOT BEING COMFORTABLE. PATIENT STATES THAT SHE DOES NOT TAKE PAIN MEDICATION NOR DOES SHE WANT TO. I OFFERED A HEATED BLANKET TO HER FOR COMFORT. PATIENT REFUSES WARM BLANKET. STATES SHE JUST WANT TO GO HOME. WAITING FOR DR CARRASQUILLO TO ROUND. THIS NURSE TOLD PATIENT IF SHE WOULD LIKE ANY PAIN MEDICATION OR ANYTHING ELSE I CAN DO FOR HER TO LET ME KNOW.
--- NOTE | 2018-09-24 14:45 | NUR ---
JANSEN CATHETER REMOVED PER DR CARRASQUILLO. PATIENT TOLERATED WELL. INSTRUCTED TO CALL WHEN SHE NEEDS TO USE BATHROOM.
[2018-09-24 14:50] LABS: CREATININE 2.11 mg/dL (0.55-1.02); POTASSIUM 4.7 mmol/L (3.5-5.1)
--- NOTE | 2018-09-24 15:05 | NUR ---
PATIENT URINATED AFTER REMOVAL OF JANSEN.
[2018-09-24] MEDS ORDERED: BUMETANIDE1 MG PO (15:26)
--- NOTE | 2018-09-24 15:54 | NUR ---
PATIENT IV REMOVED, SITE HELD x5 MINUTES. MONITOR REMOVED FOR DISCHARGE. PATIENT REFUSES SICHARGE PHOTOS. STATES THAT SHE HAS NO OPEN AREAS SO THEY SHOULDN'T BE CALLED A WOUND.
--- NOTE | 2018-09-24 15:55 | NUR ---
Discharge instructions reviewed with patient/family. Patient receptive and verbalizes understanding. Follow-up care arranged. Written instructions given to patient/family. PATIENT DISCHARGED TO HOME VIA WHEELCHAIR WITH FAMILY. SANDY FERRARA
--- NOTE | 2018-09-26 07:48 | NUR ---
PHYSICAL THERAPY CO-SIGN I approve of the Phyical Therapy notes written above. PATRICK SPENCER PT
== END 2018-09-24 15:55 | disposition home or self-care (01) | DRG 291 ==
LOC: ED 20:04 → 4E 21:10 → 5E 21:10 → EDHOLD 21:10 → 4E 21:25 → 5E 09-21 20:54
PROVIDERS: Internal Medicine Cardiovascular Disease; Student in an Organized Health Care Education/Training Program; ADMIT Internal Medicine
DX: I13.0 Hypertensive heart and chronic kidney disease with heart failure and stage 1 through stage 4 chronic kidney disease, or unspecified chronic kidney disease (principal); I50.43 Acute on chronic combined systolic (congestive) and diastolic (congestive) heart failure; J96.20 Acute and chronic respiratory failure, unspecified whether with hypoxia or hypercapnia; I69.354 Hemiplegia and hemiparesis following cerebral infarction affecting left non-dominant side; I48.2 Chronic atrial fibrillation; E03.9 Hypothyroidism, unspecified; R62.7 Adult failure to thrive; I25.10 Atherosclerotic heart disease of native coronary artery without angina pectoris; J44.9 Chronic obstructive pulmonary disease, unspecified; E55.9 Vitamin D deficiency, unspecified; F17.210 Nicotine dependence, cigarettes, uncomplicated; N18.3 Chronic kidney disease, stage 3 (moderate); E66.9 Obesity, unspecified; Z66 Do not resuscitate; I35.0 Nonrheumatic aortic (valve) stenosis; Z88.1 Allergy status to other antibiotic agents; E87.6 Hypokalemia; Z87.81 Personal history of (healed) traumatic fracture; Z86.718 Personal history of other venous thrombosis and embolism; Z87.01 Personal history of pneumonia (recurrent); I25.2 Old myocardial infarction; Z90.49 Acquired absence of other specified parts of digestive tract; Z90.710 Acquired absence of both cervix and uterus; Z68.30 Body mass index [BMI] 30.0-30.9, adult

== ENCOUNTER 2018-12-24 06:10 | Inpatient (IN) | payer OTHER ==
[~2018-12-24] VITALS: Ht 165.1 cm; Wt 68.5 kg
[2018-12-24] VITALS (10 sets, daily range): BP systolic 103–168; BP diastolic 53–831
--- NOTE | ~2018-12-24 | PR ---
[place], [place] PROGRESS NOTE NAME: DONOVAN REYNOLDS UNIT #: [id number] ROOM: 407 DOCTOR: JOJO CRUZ MD BIRTHDATE: [birth year] DOS: 12/29/2018 SUBJECTIVE: The patient is doing well. She does not have any new complaints. OBJECTIVE: VITAL SIGNS: Graphic trend shows a pressure of 128/78, pulse of 68, respirations 16, temperature 98.3. LUNGS: Diminished breath sounds, clear. HEART: Regular. Systolic murmur loud, grade 3. ABDOMEN: Obese, soft. EXTREMITIES: Without any edema. ASSESSMENT AND PLAN: 1. Bilateral pneumonia, clinically and radiologically improved. 2. Adult failure to thrive, awaiting placement. The precertification has been started. Social service is looking for a bed in a rehab center. 3. Chronic kidney disease with acute kidney injury. I did give her intravenous fluids. Kidney functions have improved. We will discontinue the fluids and placed on a low dose of Bumex. 4. Aortic stenosis. The patient will see a cardiothoracic surgeon as an outpatient for transcatheter aortic valve replacement. JOJO CRUZ MD CM:PNTRANS 7 JOJO CRUZ MD 12/29/1827 interface
--- NOTE | ~2018-12-24 | EKG ---
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: Alona Ryan : 1945 Requested By: JOJO CRUZ Order Number: [id number] Reading MD: Kaitlin Perez MD Measurements Intervals [place] Rate: 125 P: -12 ID: 171 QRS: -32 QRSD: 94 T: 78 QT: 369 QTc: 533 Interpretive Statements Sinus tachycardia Moderate LAD Probable left atrial enlargement Left ventricular hypertrophy Anterior infarct, old Prolonged QT interval Compared to ECG 12/24/2018 13:30:06 Left ventricular hypertrophy now present Prolonged QT interval now present Sinus rhythm no longer present T-wave abnormality no longer present Myocardial infarct finding still present Electronically Signed On 01-02-2019 8:09:24 PDT by Kaitlin Perez MD CM:EKGRPT:ELECTROCARDIOGRAM REPORT [id number] JOJO CRUZ MD EPIPHANY DRAFT REPORT JOJO CRUZ MD
--- NOTE | ~2018-12-24 | DS ---
[place], [place] DISCHARGE SUMMARY NAME: DONOVAN REYNOLDS UNIT #: [id number] ROOM: 407 DOCTOR: JOJO CRUZ MD BIRTHDATE: [birth year] DOS: She was admitted to the hospital with complaints of shortness of breath. HOSPITAL COURSE: The patient is very well known to us. Please refer to H and P for details. She comes in with complaints of cough, shortness of breath. She was found to be in acute respiratory failure, was placed on a BiPAP and was admitted to ICU, placed on multiple antibiotics. Consultation with Dr. Hernadez as well as Dr. Perez was obtained. She has moderate to severe aortic stenosis and requires aortic valve replacement. She is in the process of getting an evaluation as an outpatient for TAVR before this admission. After admission, her pneumonia seems to be improving very well. Cultures have all come back negative. Echocardiogram showed moderate to severe aortic stenosis. She did develop some acute kidney injury possibly from over diuresis. Diuretics were discontinued. The patient was given IV fluids. The kidney functions have improved. This morning, the patient is relatively stable and has requested placement for short-term rehab and a bed is available and will be transferring her to SNF. DIAGNOSES ON DISCHARGE: Will be, 1. Multifocal pneumonia, possible gram negative. 2. Adult failure to thrive. 3. Moderate to severe aortic stenosis. 4. Diastolic dysfunction. 5. Hypothyroidism. 6. Chronic lymphedema. 7. History of chronic atrial fibrillation. 8. History of deep venous thrombosis of the lower legs. 9. Chronic obstructive pulmonary disease with moderate cigarette smoker. 10. Hypothyroidism. DISCHARGE MEDICATIONS: Will be levofloxacin 250 mg daily for 7 days, breathing treatments with DuoNeb q.8 p.r.n., oxygen 2 liter per minute nasal cannula p.r.n., Bumex 0.5 mg daily, potassium 10 daily, prednisone 10 daily, levothyroxine 225 mcg daily, Coreg 6.25 b.i.d., Xarelto 10 daily. DIET: Low sodium. [place], [place] DISCHARGE SUMMARY NAME: DONOVAN REYNOLDS UNIT #: [id number] ROOM: 407 DOCTOR: JOJO CRUZ MD BIRTHDATE: [birth year] JOJO CRUZ MD CM:MELIA [phone] JOJO CRUZ MD 12/29/18 0944 interface
--- NOTE | ~2018-12-24 | WRIGHTHP ---
[place], [place] PATIENT HISTORY AND PHYSICAL EXAM NAME: DONOVAN REYNOLDS [facility] #: [id number] UNIT #: [id number] ROOM: 407 DOCTOR: JOJO CRUZ MD BIRTHDATE: [birth year] DOS: 12/24/2018 HISTORY OF PRESENT ILLNESS: This patient is 73 years old. The patient is very well known to me. She was seen in the office on Wednesday. At that time, she was fine without any complaints of shortness of breath. This suddenly came on yesterday when she became short of breath, has had cough which is productive of scant amounts of sputum. She has noticed some increasing leg edema. Denies having any chest pains, palpitations. She arrived to the Emergency Room, she was hypoxic, was placed on BiPAP, was admitted. After admission, the patient feels okay, except she is still short of breath and will be placed on a BiPAP. PAST MEDICAL HISTORY: Significant for: 1. Moderate aortic stenosis. 2. Diastolic CHF. 3. Advance failure to thrive. 4. Hypothyroidism. 5. Chronic lymphedema. 6. Chronic atrial fibrillation. 7. History of DVT of lower legs. 8. COPD with moderate cigarette smoker. 9. Hypothyroidism. MEDICATIONS: She is on are levothyroxine 225 mcg daily, Xarelto 15 daily, carvedilol 6.25 twice a day, Bumex 1 mg b.i.d. SOCIAL HISTORY: Smoker. PHYSICAL EXAMINATION: LUNGS: Diminished breath sounds, scattered wheezes and rales heard bilaterally. HEART: Regular, tachycardic. ABDOMEN: Obese. EXTREMITIES: About 2+ to 3+ pitting edema bilaterally. NEUROLOGIC: She is awake and alert and oriented. Answers questions appropriately. 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 ASSESSMENT AND PLAN: 1. A 73-year-old who presents with sudden onset of shortness of breath. She was hypoxic and in respiratory failure with chest x-ray showing multifocal pneumonia. We will do a CT of the chest to see the extent of pneumonia. The patient will be placed on antibiotics. Sputum cultures, blood cultures. Dr. Hernadez will be consulted. 2. Possibility of congestive heart failure, diastolic is also being raised. So again, the CT will give us some more idea. The patient is placed on IV diuretics. 3. Aortic stenosis, [id number], requiring valve replacement. I have just referred her for TAVR at [facility]. She has an appointment coming up in the next 2 weeks to meet the surgeon. She was advised to have surgery previously, but did not want to go through an open procedure. 4. Hypothyroidism. Continue home meds. [place], [place] PATIENT HISTORY AND PHYSICAL EXAM NAME: DONOVAN REYNOLDS UNIT #: [id number] ROOM: 407 DOCTOR: JOJO CRUZ MD BIRTHDATE: [birth year] JOJO CRUZ MD CM:HISPHYS:PATIENT HISTORY AND PHYSICAL EXAMINATION 0815 [id number] JOJO CRUZ MD 01/24/19 0708 interface
--- NOTE | ~2018-12-24 | PR ---
[place], [place] PROGRESS NOTE NAME[facility]OL[id number] UNIT #: [id number] ROOM: 407 DOCTOR: JOJO CRUZ MD BIRTHDATE: [birth year] DOS: SUBJECTIVE: The patient is about the same, does not have any new complaints. OBJECTIVE: VITAL SIGNS: Graphic trend shows a pressure 134/50, pulse of 76, respirations 18, temperature 98.4. LUNGS: Diminished breath sounds, scattered wheezes heard, but much improved. HEART: Regular. ABDOMEN: Obese, soft. EXTREMITIES: Without any edema. ASSESSMENT AND PLAN: 1. Extensive pneumonia with bilateral pleural effusions, parapneumonic, on intravenous antibiotics. Clinically improving. 2. Critical aortic stenosis, requiring aortic valve replacement. The patient is planning to have transcatheter valve replacement. 3. Benign hypertension, controlled. 4. Elevated troponin, most likely from chronic kidney disease, underwent a cardiac catheterization last year. We will try to get a copy of the report from [place]. 5. History of deep venous thrombosis of the legs with chronic lymphedema, improved with diuretics. JOJO CRUZ MD CM:PNTRANS [phone] JOJO CRUZ MD 12/26/184 interface
--- NOTE | ~2018-12-24 | PR ---
[place], [place] PROGRESS NOTE NAME: DONOVAN REYNOLDS UNIT #: [id number] ROOM: 407 DOCTOR: JOJO CRUZ MD BIRTHDATE: [birth year] DOS: 12/27/2018 SUBJECTIVE: The patient is doing pretty well this morning. She is not having any complaints. OBJECTIVE: VITAL SIGNS: Graphic trend shows blood pressure 107/63, pulse of 72, respirations 20, temperature 98.7. LUNGS: Diminished breath sounds, clear. HEART: Regular. ABDOMEN: Obese. EXTREMITIES: Without any edema. ASSESSMENT AND PLAN: 1. Bilateral pneumonia, possible gram negative. Blood cultures have been negative. Sepsis has been ruled out. Repeat chest x-ray is pending today. Clinically the patient is better. 2. Critical aortic stenosis with negative cardiac catheterization showing no major coronary artery disease, awaiting a transcatheter aortic valve replacement. She has a scheduled appointment with cardiothoracic surgeon. 3. Adult failure to thrive. We will discontinue catheter. PT/OT will be consulted and possible short-term placement. JOJO CRUZ MD CM:PNTRANS [phone] JOJO CRUZ MD 12/27/18 1231 interface
--- NOTE | ~2018-12-24 | PR ---
[place], [place] PROGRESS NOTE NAME: [facility]YNOLDS [id number] UNIT #: [id number] ROOM: 407 DOCTOR: RONALD GRAY MD,ANTWON BIRTHDATE: [birth year] DOS: 01/02/2019 PULMONARY PROGRESS NOTE SUBJECTIVE: The patient noted comfortable at this time, resting on the bed without any acute distress this morning of assessment. There were no symptoms of chest pain, fever or chills reported. OBJECTIVE: VITAL SIGNS: Vital signs of the patient, which have been recorded shows normal temperature, respiratory rate is 18, heart rate is 67, and blood pressure is 104/52. Pulse oxygen saturation at rest on room air is 99% saturation. HEENT: On examination, no acute change. NECK: Supple. CARDIOVASCULAR SYSTEM: S1, S2 audible. LUNGS: The patient was noted without any wheeze or crackle. ABDOMEN: Soft, nontender. Bowel sounds present. EXTREMITIES: The patient was noted without any acute edema. IMAGING DATA: Chest x-ray showed complete resolution, previously noted; pneumonia and congestive heart failure. IMPRESSION: The patient with resolving acute exacerbation of chronic obstructive pulmonary disease, acute pneumonia, congestive heart failure, and pleural fluid progressively. PLAN OF THERAPY: No changes in plan of care at this time. Continue current plan of management. Supportive therapy, plan of management, and care plan. Discharge planning by Dr. Lamar Jones. ANTWON CARDENAS MD CM:PNTRANS [phone] ANTWON GRAY MD 01/02/19 2330 interface
--- NOTE | ~2018-12-24 | PR ---
[place], [place] PROGRESS NOTE NAME: DONOVAN REYNOLDS UNIT #: [id number] ROOM: 407 DOCTOR: ANTWON JAMES MD BIRTHDATE: [birth year] DOS: 12/28/2018 SUBJECTIVE: The patient was noted comfortable at this time, resting on the chair this morning. Denies symptoms of chest pain, coughing, sputum expectoration. Did not report edema of lower extremities. She was continued on antibiotic for the pneumonia management and the diuretic for congestive heart failure management. OBJECTIVE: VITAL SIGNS: Normal temperature, respiratory rate 20, heart rate 102, blood pressure 154/53. Pulse oxygen saturation on room air 93% saturation. HEENT: Examination shows head was atraumatic. Eyes nonicterus. NECK: Supple. CARDIOVASCULAR: S1, S2 audible. LUNGS: Noted without any wheezing or crackles at the present time. ABDOMEN: Soft, nontender. Bowel sounds are present. EXTREMITIES: No acute change. LABORATORY DATA: Urine for Legionella antigen and strep antigen were noted negative results. CBC this morning, WBC count and 16.4, BUN 24, creatinine 2.12. IMPRESSION: 1. Gradual progressive resolution of congestive heart failure noted clinically and radiologically. 2. The patient with resolving acute exacerbation of chronic obstructive pulmonary disease and improving acute pneumonia clinically and radiologically as well. 3. Increased BUN and creatinine related to diuretics. PLAN OF TREATMENT: Continue physical therapy, occupational therapy. The patient was planned for admission to the snf facility. Hold off the diuretic at this time. Could be switched to the oral diuretics. The patient is currently getting Xarelto low dose, which would be appropriate because the patient with normal kidney functions to prevent over-coagulation and/or toxicity related to the Xarelto. She may be switched to the Eliquis if necessary to prevent those complications. [place], [place] PROGRESS NOTE NAME: DONOVAN REYNOLDS UNIT #: [id number] ROOM: 407 DOCTOR: ANTWON JAMES MD BIRTHDATE: [birth year] ANTWON CARDENAS MD CM:PNTRANS [phone] ANTWON GRAY MD 01/16/19 1148 interface
--- NOTE | ~2018-12-24 | PR ---
[place], [place] PROGRESS NOTE NAME: DONOVAN REYNOLDS UNIT #: [id number] ROOM: 407 DOCTOR: JOJO CRUZ MD BIRTHDATE: [birth year] DOS: SUBJECTIVE: The patient is doing much better, does not have any complaints today. OBJECTIVE: VITAL SIGNS: Graphic trend shows blood pressure 133/75, pulse of 73, respirations 20, temperature 98.9, T-max of 100. LUNGS: Diminished breath sounds. No wheezes heard this morning. A few rales are heard, but again considerably improved. HEART: Regular. ABDOMEN: Obese. EXTREMITIES: Without any edema. ASSESSMENT AND PLAN: 1. Multifocal pneumonia. The patient is on IV antibiotics. 2. Nodular density, right apex. Followup CT scan to be done in 6 months. 3. Elevated troponin, most likely non- ST elevation myocardial infarction. The patient did have a cardiac catheterization in 2018 at [place]. We will try to get a copy of it. Dr. Perez is following the patient. 5. Moderate cigarette smoker. Counseled that she is on IV steroids for exacerbation of chronic obstructive pulmonary disease. 6. Aortic stenosis, [id number]. Again, she would need a TA aortic valve repair. She has decided she would take transcatheter aortic valve replacement rather than open heart surgery. She has an appointment in [place] with cardiothoracic surgeon. This morning, the patient has decided to make herself comfort care, which is signed and then we will try to get a copy of the stress report from [facility]. JOJO CRUZ MD CM:PNTRANS 1 27 JOJO CRUZ MD 12/25/182025 interface
--- NOTE | ~2018-12-24 | EKG ---
[place], [place] ELECTROCARDIOGRAM REPORT NAME: DONOVAN REYNOLDS UNIT #: [id number] ROOM: [facility] DOCTOR: LATRICE DRAFT REPORT BIRTHDATE: [birth year] [facility] Test Date: 2018-12-24 Test Time: 06:19:11 Pat Name: DONOVAN REYNOLDS Department: Room: [facility] Gender: F [employer] Carpenter: : 1945 Requested By: WILMA VILLEDA Order Number: [id number] Reading MD: Sarbjit Hernadez MD Measurements Intervals [place] Rate: 90 P: 32 DC: 188 QRS: 8 QRSD: 105 T: 52 QT: 349 QTc: 427 Interpretive Statements Sinus rhythm Anterior infarct, old Compared to ECG 09/20/2018 03:52:37 Left ventricular hypertrophy no longer present Early repolarization no longer present Myocardial infarct finding still present Electronically Signed On 12-25-2018 12:46:15 PDT by Sarbjit Hernadez MD CM:EKGRPT:ELECTROCARDIOGRAM REPORT 0619 [id number] WILMA GLOVER DRAFT REPORT WILMA VILLEDA DO
--- NOTE | ~2018-12-24 | PR ---
[place], [place] PROGRESS NOTE NAME: DONOVAN REYNOLDS UNIT #: [id number] ROOM: 407 DOCTOR: RONALD GRAY MD,ANTWON BIRTHDATE: [birth year] DOS: 12/29/2018 SUBJECTIVE: She has been comfortably resting this morning, sitting on the bed. Denies symptoms of chest pain, coughing, shortness of breath, and all symptoms have been progressively and gradually resolving. OBJECTIVE: VITAL SIGNS: Normal temperature, respiratory rate 16, heart rate 68. Pulse oxygen saturation on room air 99% saturation. HEAD, EYES, EARS, NOSE, AND THROAT: Head was atraumatic. Eyes nonicterus. NECK: Supple. CARDIOVASCULAR SYSTEM: S1, S2 audible. LUNGS: Without any wheeze or crackles. ABDOMEN: Soft, nontender, bowel sounds present. EXTREMITIES: Without any acute edema. IMPRESSION: Progressive and gradual resolution of the acute congestive heart failure. The patient was noted with improving acute pneumonia and other respiratory symptoms. PLAN OF TREATMENT: The patient was considered for transfer to detention facility for detention rehabilitation, physical therapy and occupation therapy. Tapering steroids has previously ordered. Usual care, other supportive, plan of management and care. ANTWON CARDENAS MD CM:PNTRANS [phone] ANTWON GRAY MD 01/16/19 1151 interface
--- NOTE | ~2018-12-24 | PR ---
[place], [place] PROGRESS NOTE NAME: DONOVAN REYNOLDS [facility] #: [id number] UNIT #: [id number] ROOM: 407 DOCTOR: RONALD GRAY MD,ANTWON BIRTHDATE: [birth year] DOS: 12/25/2018 SUBJECTIVE: She has been continued in intensive care unit, has not been reported symptoms of fever or chills. Cough has been noted. Small amount of expectoration. Denies symptoms of hemoptysis. Denies symptoms of nausea, vomiting. She has not been noted any acute hemodynamic instability. Low-grade fever was 100 degrees Fahrenheit noted yesterday in the evening. The patient has not been reported any symptoms of headache, diplopia. Denies symptoms of nausea, vomiting, diarrhea, abdominal pain, hematemesis, melena, or hematochezia. Remaining systems were reviewed. They were noted all negative. PHYSICAL EXAMINATION: VITAL SIGNS: Temperature 100 degrees Fahrenheit, respiratory rate 26-20, heart rate 77-73, blood pressure 99/50-136/60. The pulse ox saturation on 2 liters nasal cannula 94% saturation. HEENT: Examination shows head was atraumatic. Eyes nonicterus. NECK: Supple. CARDIOVASCULAR: S1, S2 audible. LUNGS: Noted with scattered crackles of the lung. There was no wheezing. ABDOMEN: Soft, nontender. Bowel sounds present. EXTREMITIES: Without any acute edema. MUSCULOSKELETAL: Without acute deformities. CENTRAL NERVOUS SYSTEM: The patient's cranial nerves 2-12 intact. LABORATORY DATA: The troponin, which were done in 3 sets yesterday were noted mild elevation in troponin with maximum troponin of 0.90. CT scan of chest without contrast was reviewed, shows evidence of chronic opacities as well as suspected acute pneumonia diagnosis consolidation as well, which is being treated. Urine culture was noted with no bacterial growths. There were no other new labs were done today. IMPRESSION: 1. The patient has been currently admitted to the hospital noted being treated for acute congestive heart failure with acute pneumonia bilaterally. 2. The patient with acute severe hypoxic respiratory failure with decreased oxygen requirement was also noted in the last 24 hours. 3. Small pleural fluid related to congestive heart failure, fluid overload as well. 4. Permanent atrial fibrillation. 5. Acute exacerbation of chronic obstructive pulmonary disease. PLAN OF TREATMENT: Continue antibiotics, bronchodilator. Cardiology assessment with normal troponins and congestive heart failure management assistance. Bronchodilator to be continued. Monitor labs intermittently. Other additional treatment changes as necessary will be ordered according to progression of the illness. Usual care. The patient could be transferred from the pulmonary standpoint to the telemetry floor if desired. [place], [place] PROGRESS NOTE NAME: DONOVAN REYNOLDS UNIT #: [id number] ROOM: 407 DOCTOR: ANTWON JAMES MD BIRTHDATE: [birth year] ANTWON CARDENAS MD CM:PNTRANS [phone] ANTWON GRAY MD 01/16/19 1147 interface
--- NOTE | ~2018-12-24 | PR ---
[place], [place] PROGRESS NOTE NAME: DONOVAN REYNOLDS UNIT #: [id number] ROOM: 407 DOCTOR: WES PERLA MD BIRTHDATE: [birth year] DOS: 12/26/2018 SUBJECTIVE: She has very little cough, no fever or chills. Her breathing is fairly decent. Her appetite is okay. No palpitations. She is little irritable. She is on IV antibiotics. PHYSICAL EXAMINATION: GENERAL: This is a patient who is alert, oriented. VITAL SIGNS: Pulse is 66, blood pressure 138/76. NECK: Normal JVP. CARDIAC: Auscultation reveals no murmurs. EXTREMITIES: She has no edema in lower extremity. PULMONARY: No crackles are present in both lungs. IMAGING: She had an echocardiogram done today, EF 65% with moderate LVH and mild aortic incompetence. IMPRESSION: This patient has pneumonia that is being treated. She had a number of rhythm occasionally either it is a supraventricular tachycardia or atrial flutter with 2:1 AV conduction, but this is nonsustained for the most part. No new recommendations. WES PERLA MD CM:PNTRANS 1117 00 WES PERLA MD 12/26/18 230 interface
--- NOTE | ~2018-12-24 | PR ---
[place], [place] PROGRESS NOTE [facility]: [facility]YNOLDS [id number] UN[facility] #: [id number] ROOM: 407 DOCTOR: MONICA CARRASQUILLO MD BIRTHDATE: [birth year] DOS: 12/30/2018 SUBJECTIVE: The patient is still short of breath. PHYSICAL EXAMINATION: VITAL SIGNS: Blood pressure 120/54, heart rate of 69 beats per minute, breathing 18-20 times per minute, temperature 98.5 degrees Fahrenheit. GENERAL APPEARANCE: The patient is alert and oriented x 3, in no visible distress. HEENT AND NECK: Exam within normal limits. CARDIOVASCULAR SYSTEM: Heart rate is regular in rate and rhythm. S1 and S2 normally audible. LUNGS: Clear to auscultation. ABDOMEN: Soft, nontender. No obvious organomegaly. Bowel sounds are present. EXTREMITIES: Without significant cyanosis or edema. IMPRESSION AND PLAN: 1. The patient with acute congestive heart failure, improving with diuresis. 2. Acute pneumonia, being treated and followed. Dr. Hernadez is following and treating the patient with Levaquin. 3. Hypothyroidism, treated with levothyroxine. 4. Diastolic dysfunction with diastolic type acute congestive heart failure. The patient is being diuresed. 5. Chronic atrial fibrillation. The patient is anticoagulated with Xarelto. 6. History of deep vein thrombosis. The patient is anticoagulated. 7. Hypothyroidism, replaced with supplements. MONICA CARRASQUILLO MD CM:PNTRANS [phone] MONICA CARRASQUILLO MD 12/30/18 1759 interface
--- NOTE | ~2018-12-24 | PR ---
[place], [place] PROGRESS NOTE NAME: [facility]YNOLDS [id number] UNIT #: [id number] ROOM: 407 DOCTOR: RONALD GRAY MD,ANTWON BIRTHDATE: [birth year] DOS: 12/26/2018 PULMONARY PROGRESS NOTE SUBJECTIVE: She has been noted comfortable at this time, resting in the bed this morning of assessment, has not been with symptoms of chest pain. She does have some cough without any sputum expectoration. Denies symptoms of fever or chills. OBJECTIVE: VITAL SIGNS: For the patient, which has been recorded showed the temperature noted as normal, respiratory rate 16, heart rate 68, blood pressure 120/64, pulse oxygen saturation recorded as 100% on 2 liters nasal cannula. HEENT: Head was atraumatic. Eyes nonicterus. NECK: Supple. CARDIOVASCULAR: S1, S2 audible. LUNGS: The patient was noted without any wheezing or crackles at the present time. ABDOMEN: Soft, nontender. Bowel sounds present. EXTREMITIES: The patient with no acute change. IMPRESSION: 1. The patient with congestive heart failure, small bilateral pleural fluid. 2. Acute pneumonia superimposed as well. 3. Acute exacerbation of chronic obstructive pulmonary disease. PLAN OF MANAGEMENT: Follow the Cardiology recommendation from the cardiac standpoint. Normal troponin and others. Continue Solu-Medrol, bronchodilators and the antibiotics. Repeat chest x-ray in the morning to reassess the progression of pneumonia and congestive heart failure as well as pleural fluid for tomorrow. ANTWON CARDENAS MD CM:PNTRANS [phone] ANTWON GRAY MD 12/26/18 1707 interface
--- NOTE | ~2018-12-24 | PR ---
[place], [place] PROGRESS NOTE [id number] #: [id number] ROOM: 407 DOCTOR: JOJO CRUZ MD BIRTHDATE: [birth year] DOS: 01/02/2019 SUBJECTIVE: The patient was unable to go home over the weekend because of insurance not certifying her release to a [facility] for rehab. She on the other hand also has refused to participate in physical therapy for the last couple of days. OBJECTIVE: VITAL SIGNS: Blood pressure is 102/59, pulse of 63, respirations 18, temperature 97.9. LUNGS: Clear. HEART: Regular. ABDOMEN: Obese, soft. EXTREMITIES: Without any edema. ASSESSMENT AND PLAN: 1. Multifocal pneumonia, possible gram negative, on IV antibiotics, which has improved clinically as well as radiologically. The plan is to discharge. No blood work was done over the last 3 days. 2. Chronic kidney disease with acute kidney injury, did receive IV fluids. We did hold the diuretics. Again, no labs are available for the last 3-4 days. Repeat labs will be ordered today. 3. Adult failure to thrive. The patient would have benefited placement to a local [facility] for therapy, but unfortunately the patient has refused to participate in physical therapy, so I do not have any choice, but to discharge her to home. 4. Moderate to severe aortic stenosis. The patient would require transcatheter aortic valve replacement. The patient has an appointment as an outpatient for cardiothoracic surgeon to see her. DISCHARGE DIAGNOSIS: transcatheter aortic valve replacement. JOJO CRUZ MD CM:PNTRANS 0824 0947 JOJO CRUZ MD 01/02/19 0946 interface
--- NOTE | ~2018-12-24 | PR ---
[place], [place] PROGRESS NOTE NAME: DONOVAN REYNOLDS UNIT #: [id number] ROOM: 407 DOCTOR: RONALD GRAY MD,ANTWON BIRTHDATE: [birth year] DOS: 12/31/2018 PULMONARY PROGRESS NOTE SUBJECTIVE: The patient noted comfortable at this time without any acute distress. The shortness of breath and coughing continue to resolve. She has been getting physical therapy. Denies symptoms of chest pain, fever, or chills. OBJECTIVE: VITAL SIGNS: Normal temperature, respiratory rate is 20, heart rate is 82, and blood pressure is 124/76. The pulse ox saturation on room air is 98% saturation. HEENT: Examination shows head was atraumatic. Eyes nonicterus. NECK: Supple. CARDIOVASCULAR SYSTEM: S1, S2 is audible. LUNGS: The patient was noted without any wheeze or crackles. ABDOMEN: Soft, nontender. Bowel sounds present. EXTREMITIES: No new change. IMPRESSION: Resolving acute congestive heart failure as well as acute pneumonia gradually and progressively. Overall debility. PLAN OF TREATMENT: No changes in the plan of care at this time. Continue the patient's current plan of treatment as previously. Usual care. Supportive plan of treatment. ANTWON CARDENAS MD CM:PNTRANS [id number] ANTWON GRAY MD 01/01/19 0614 interface
--- NOTE | ~2018-12-24 | PR ---
[place], [place] PROGRESS NOTE NAME: DONOVAN REYNOLDS UNIT #: [id number] ROOM: 407 DOCTOR: ANTWON JAMES MD BIRTHDATE: [birth year] DOS: 12/27/2018 PULMONARY PROGRESS NOTE SUBJECTIVE: She has been comfortably resting on the bed this morning. She has not been reported any symptoms of fever or chills. The patient does have mild cough. There was no sputum expectoration. Denies symptoms of hemoptysis. The patient denies symptoms of headache, diplopia, nausea, vomiting, diarrhea. Generalized weakness and fatigue, which has been reported is improving progressively. OBJECTIVE: VITAL SIGNS: For the patient which were recorded showed normal temperature, respiratory rate 20, heart rate 72, blood pressure 110/68. Pulse oxygen saturation of the patient on 2 liters nasal cannula 100% saturation. HEENT: Examination shows head was atraumatic. Eye nonicterus. NECK: Supple. CARDIOVASCULAR: S1, S2 audible. LUNGS: The patient with decreased breath sounds noted in the left lower lung. There were no wheezing or crackles. ABDOMEN: Soft, nontender. Bowel sounds present. EXTREMITIES: Without any acute edema. MUSCULOSKELETAL: The patient without any acute deformities. CENTRAL NERVOUS SYSTEM: Cranial nerves 2-12 intact. LABORATORY DATA: Chest x-ray that was done this morning showed marked improvement in aeration of the lungs for the patient without any significant pleural fluid, remaining pulmonary infiltration. IMPRESSION: The patient who has been currently noted with resolving acute congestive heart failure, bilateral pleural fluid. Acute pneumonia superimposed also improving and improving acute exacerbation of chronic obstructive pulmonary disease gradually and progressively. PLAN OF MANAGEMENT: Discharge planning could be started in the next 24 hours. Continue current dose of Solu-Medrol, bronchodilators and other medical management. Switching the patient's antibiotic to the oral Levaquin for the next 3 days would be done. All other supportive plan of management, care plan of treatment and therapies. Usual care. [place], [place] PROGRESS NOTE NAME: DONOVAN REYNOLDS UNIT #: [id number] ROOM: 407 DOCTOR: ANTWON JAMES MD BIRTHDATE: [birth year] ANTWON CARDENAS MD CM:PNTRANS 1151 [id number] ANTWON GRAY MD 12/28/180 interface
--- NOTE | ~2018-12-24 | EKG ---
[place], [place] ELECTROCARDIOGRAM REPORT NAME: DONOVAN REYNOLDS UNIT #: [id number] ROOM: [facility] DOCTOR: LATRICE DRAFT REPORT BIRTHDATE: [birth year] [facility] Test Date: 2018-12-24 Test Time: 13:30:06 Pat Name: DONOVAN REYNOLDS Department: Room: [facility] Gender: F [employer] Sales Representative: Aparna Aguirre : 1945 Requested By: WILMA VILLEDA Order Number: [id number] Reading MD: Sarbjit Hernadez MD Measurements Intervals [place] Rate: 76 P: 49 [place]: 210 QRS: 15 QRSD: 111 T: 100 QT: 402 QTc: 453 Interpretive Statements Sinus rhythm Probable left atrial enlargement Low voltage, extremity and precordial leads Anteroseptal infarct, old Nonspecific T abnormalities, lateral leads Baseline wander in lead(s) V4 Compared to ECG 09/20/2018 03:52:37 Low QRS voltage now present T-wave abnormality now present Left ventricular hypertrophy no longer present Early repolarization no longer present Myocardial infarct finding still present Electronically Signed On 12-25-2018 12:46:49 PDT by Sarbjit Hernadez MD CM:EKGRPT:ELECTROCARDIOGRAM REPORT 1330 [id number] WILMA GLOVER DRAFT REPORT WILMA VILLEDA DO
--- NOTE | ~2018-12-24 | CON ---
[place], [place] REPORT OF CONSULTATION [id number] UNIT #: [id number] ROOM: 407 DOCTOR: WES PERLA MD BIRTHDATE: [birth year] DOS: 12/25/2018 HISTORY OF PRESENT ILLNESS: This is a 73-year-old -[place] woman with a history of severe aortic stenosis with a peak gradient of 62 mmHg and aortic valve area calculated at 1 cm square. She has severe left ventricular hypertrophy and diastolic dysfunction of the left ventricle and some degree of pulmonary hypertension. She also carries a diagnosis of diastolic heart failure, atrial fibrillation. She had a stroke in the very remote past and has had DVT of the legs, hypothyroidism and COPD. She was seen by Dr. Jones in her office many days ago when she complained of some cough and shortness of breath, but she was doing fairly well and her breathing got worse and she started coughing up some phlegm as well and came to the Emergency Department. She tells me that she did have chills and shivering at one time. No loss of consciousness. She did not have any palpitations or orthopnea and no swelling of the legs. HOME MEDICATIONS: Included carvedilol 6.25 mg b.i.d., furosemide 40 mg daily, levothyroxine 200 mcg daily and rivaroxaban 10 mg daily. Now, she is on antibiotics and also Solu-Medrol. I was asked to see her for possible heart failure, pneumonia and rhythm issue. PHYSICAL EXAMINATION: GENERAL: This is a patient who is very pleasant, alert. She got little touch when I was asking her questions, but she calmed down and was very pleasant thereafter. Her complexion is fine. No thyromegaly or finger clubbing. No thyromegaly or finger clubbing. VITAL SIGNS: She is afebrile, temperature 98.0 degrees, pulse is regular at 76 beats per minute, blood pressure 139/57. NECK: JVP is normal. There are systolic sounds in the neck, but I believe these are referred sounds from murmur of aortic stenosis. CARDIOVASCULAR: there is no parasternal heave. Auscultation reveals normal first heart sound. Second heart sound is barely audible and there is late peaking systolic murmur that is grade 5/6. EXTREMITIES: She has 1+ pretibial edema. Pedal pulses are palpable. RESPIRATORY: She is mildly tachypneic and has oxygen on. Percussion note is normal. Auscultation reveals reduced breath sounds with crackles, more so on the right side. ABDOMEN: Supple, nontender. No pulsatile mass. DIAGNOSTIC STUDIES: An ECG on admission demonstrated regular tachycardia at 126 beats per minute. This may be supraventricular tachycardia or sinus tachycardia. P waves seem to be buried in T waves. ECG done in a few hours later yesterday demonstrated normal sinus rhythm at 76 beats per minute and T-wave inversion in anterior chest leads and flattening in lateral chest leads. Monitor has shown normal sinus rhythm most of the time, but there are episodes of supraventricular tachycardia at about 140-150 beats per minute with some atrial activity that is distorting the morphology of T waves. This is either [place], [place] REPORT OF CONSULTATION NAME: DONOVAN REYNOLDS UNIT #: [id number] ROOM: 407 DOCTOR: WES PERLA MD BIRTHDATE: [birth year] sinus tachycardia or may be bursts of atrial flutter with 2:1 AV conduction. Chest x-ray demonstrates pneumonia and there is very little pulmonary congestion, i.e. pulmonary edema. IMPRESSION: 1. This patient has history of atrial fibrillation, but for the most part in sinus rhythm. I think she is either having runs of supraventricular tachycardia or atrial flutter with 2:1 AV conduction. 2. Severe aortic stenosis is present and this is capable of causing heart failure, particularly when the heart rate is fast. 3. Pneumonia. This is being treated aggressively. 4. The patient seems to be better today than on at the time of admission. RECOMMENDATIONS: I do not feel another echo needs to be done, one was done in September and Dr. Daniels read that, which showed severe left ventricular hypertrophy, diastolic dysfunction of left ventricle grade 1 and severe calcific aortic stenosis and [id number] pulmonary hypertension. Anticoagulation is essential in this patient who has had a stroke in the past. I think an echocardiogram should be repeated in the next 6 months or so and she is likely to require aortic valve replacement within a couple of years, unless she has symptoms suggestive of aortic stenosis as the culprit. I thank you for this consult. WES PERLA MD CM:CONSTR:REPORT OF CONSULTATION 0922 12/25/18 2209 interface
--- NOTE | ~2018-12-24 | PR ---
[place], [place] PROGRESS NOTE [id number] UNIT #: [id number] ROOM: 407 DOCTOR: MONICA CARRASQUILLO MD BIRTHDATE: [birth year] DOS: 12/31/2018 SUBJECTIVE: The patient continues to be somewhat short of breath, but breathing is improving. OBJECTIVE: VITAL SIGNS: Blood pressure 118/80, heart rate of 70 beats per minute, breathing 20 times per minute, temperature 98 degrees Fahrenheit. GENERAL APPEARANCE: The patient is alert and oriented x 3, in no visible distress. Generalized weakness. HEENT AND NECK: Exam within normal limits. CARDIOVASCULAR SYSTEM: Heart rate is regular in rate and rhythm. S1 and S2 normally audible. LUNGS: Clear to auscultation. ABDOMEN: Soft, nontender. No obvious organomegaly. Bowel sounds are present. EXTREMITIES: Without significant cyanosis or edema. IMPRESSION: 1. The patient with multifocal pneumonia, improved with treatment. The patient is waiting for transfer to [facility] facility. 2. Adult failure to thrive. The patient is on PT, waiting for rehabilitation. 3. Chronic diastolic type congestive heart failure, compensated. 4. Nicotine smoke dependence. The patient encouraged to stop. 5. Hypothyroidism, replaced with supplements. MONICA CARRASQUILLO MD CM:PNTRANS [id number] MONICA CARRASQUILLO MD 01/01/19 1552 interface
--- NOTE | ~2018-12-24 | PR ---
[place], [place] PROGRESS NOTE NAME: DONOVAN REYNOLDS UNIT #: [id number] ROOM: 407 DOCTOR: WES PERLA MD BIRTHDATE: [birth year] DOS: 12/28/2018 SUBJECTIVE: She is sitting in bed, talking to her sister. She is alert, oriented. She is mildly tachypneic. She does not complain of any chest pain or palpitation. Her appetite is fine. She has not walked much. PHYSICAL EXAMINATION: GENERAL: The patient is alert, oriented, very pleasant. Complexion is fine. She is mildly tachypneic. VITAL SIGNS: Pulse is regular at 80 beats per minute, blood pressure 123/31. NECK: JVP appears to be normal. Pulmonic sound is somewhat accentuated. EXTREMITIES: No edema in the lower extremities. RESPIRATORY: Lungs are fairly clear to auscultation. Fluid balance was -1.6 liters as of this point over previous 24 hours. Patient's weight has been fairly consistent. Hemoglobin is 10.1 g/dL. BUN is 64 and was 21 on admission. Creatinine is 2.12, was 1.72 and admission. An echocardiogram was done yesterday and it demonstrated an LV ejection fraction of 65-70% with severe left ventricular hypertrophy that is concentric, moderate to severely calcific aortic stenosis and xffk-lx-wooabrhx aortic regurgitation and moderate pulmonary hypertension. IMPRESSION: 1. Systolic heart failure is well compensated. 2. Pneumonia is resolving. 3. Lcuoecja-xn-hwblxs aortic stenosis is present. This is almost severe and I believe she is to see the TAVR team in [facility] for aortic valve replacement. 4. Chronic renal insufficiency. I agree with discontinuing the loop diuretics, but I think she definitely needs an oral loop diuretic to keep heart failure at bay. I would like to see her in my office in the next 2-4 weeks. [place], [place] PROGRESS NOTE NAME: DONOVAN REYNOLDS UNIT #: [id number] ROOM: 407 DOCTOR: WES PERLA MD BIRTHDATE: [birth year] WES PERLA MD CM:PNTRANS 42 1 WES PERLA MD 12/29/18100 interface
--- NOTE | ~2018-12-24 | PR ---
[place], [place] PROGRESS NOTE NAME: [facility]YNOLDS [id number] UNIT #: [id number] ROOM: 407 DOCTOR: JOJO CRUZ MD BIRTHDATE: [birth year] DOS: 12/28/2018 SUBJECTIVE: The patient is doing well and is not having any complaints today. PHYSICAL EXAMINATION: VITAL SIGNS: Graphic trend shows a pressure of 114/57, pulse of 73, respirations 20, temperature 99.0. LUNGS: Diminished breath sounds. HEART: Regular with a systolic murmur. ABDOMEN: Obese. EXTREMITIES: Without any edema. MICROBIOLOGY: Blood cultures, no bacterial growth. Urine culture, no bacterial growth. Chest x-ray shows improvement in the pneumonia. LABORATORY DATA: BMP this morning, glucose 97, BUN 64, creatinine 2.12, sodium 139, potassium 4.8. WBC count is 16.4, RBC 4.75, hemoglobin 10.0, hematocrit 35.9, platelets 536. ASSESSMENT AND PLAN: 1. Bilateral pneumonia with consolidation, on IV antibiotics with improvement in the pneumonia clinically as well as radiologically. 2. Acute kidney injury with elevated BUN and creatinine, possibly from hypotension and acute tubular necrosis. We will give her slow IV hydration for 24 hours. 3. Cnubevmt-su-caatlp aortic stenosis. We will require a TAVR as an outpatient, consultation pending. 4. Adult failure to thrive. She has agreed to go to [facility]. Arrangements are being made. JOJO CRUZ MD CM:PNTRANS [id number] JOJO CRUZ MD 12/28/18 1039 interface
--- NOTE | ~2018-12-24 | EKG ---
[place], [place] ELECTROCARDIOGRAM REPORT NAME: DONOVAN REYNOLDS UNIT #: [id number] ROOM: [facility] DOCTOR: LATRICE DRAFT REPORT BIRTHDATE: [birth year] [facility] Test Date: 2018-12-24 Test Time: 09:21:58 Pat Name: DONOVAN REYNOLDS Department: Room: [facility] Gender: F [employer] Pad: Aparna Aguirre : 1945 Requested By: WILMA VILLEDA Order Number: [id number] Reading MD: Sarbjit Hernadez MD Measurements Intervals [place] Rate: 126 P: 0 [place]: 183 QRS: -14 QRSD: 97 T: 66 QT: 401 QTc: 581 Interpretive Statements Sinus tachycardia LAE, consider biatrial enlargement Anteroseptal infarct, age indeterminate Prolonged QT interval Compared to ECG 09/20/2018 03:52:37 Prolonged QT interval now present Sinus rhythm no longer present Left ventricular hypertrophy no longer present Early repolarization no longer present Myocardial infarct finding still present Electronically Signed On 12-25-2018 12:46:36 PDT by Sarbjit Hernadez MD CM:EKGRPT:ELECTROCARDIOGRAM REPORT 0921 1246 WILMA GLOVER DRAFT REPORT WILMA VILLEDA DO
--- NOTE | ~2018-12-24 | PR ---
[place], [place] PROGRESS NOTE NAME: [facility]YNOLDS [id number] UNIT #: [id number] ROOM: 407 DOCTOR: RONALD GRAY MD,ANTWON BIRTHDATE: [birth year] DOS: 12/30/2018 PULMONARY PROGRESS NOTE SUBJECTIVE: The patient is noted comfortable at this time, resting in the bed, with gradual reduction in respiratory symptoms noted. There are no symptoms of chest pain. Coughing has been improving. Shortness of breath resolving. OBJECTIVE: VITAL SIGNS: Normal temperature, respiratory rate 18, heart rate 69, blood pressure 120/54. Pulse oxygen saturation at rest and on room air 99% saturation. HEENT: Examination shows head is atraumatic. Eyes nonicterus. NECK: Supple. CARDIOVASCULAR: S1 and S2 audible. LUNGS: Noted without any wheezing or crackles. ABDOMEN: Soft, nontender. Bowel sounds present. EXTREMITIES: No acute change. IMPRESSION: Resolving congestive heart failure with gradual resolution of acute exacerbation of chronic obstructive pulmonary disease as well. PLAN OF THERAPY: No changes in the plan at this time from a pulmonary standpoint. The patient will be transferred to [facility] facility by the primary care physician when accepted. At this time, no change in the treatment will be needed. ANTWON CARDENAS MD CM:PNTRANS 1321 0428 ANTWON GRAY MD 12/31/18 0427 interface
--- NOTE | ~2018-12-24 | PR ---
[place], [place] PROGRESS NOTE NAME: DONOVAN REYNOLDS UNIT #: [id number] ROOM: 407 DOCTOR: JASON ROY MD BIRTHDATE: [birth year] DOS: 12/27/2018 SUBJECTIVE: A 24-hour events noted. Discussed with the nursing staff. The patient is doing quite well. She is undergoing breathing treatment as we speak. Her cough is significantly improved. She denies any chest discomfort, no palpitation. She is in sinus rhythm. She is on IV antibiotics. OBJECTIVE: VITAL SIGNS: Blood pressure today is 107/70. She is in sinus rhythm. REVIEW OF SYSTEMS: A 6-8 systems reviewed and negative as per HPI. PHYSICAL EXAMINATION: GENERAL: She is alert, oriented x 3. HEENT: Unremarkable. NECK: Supple, no JVD. LUNGS: Diminished breath sounds with few coarse crackles and wheezing. ABDOMEN: Soft, nontender. EXTREMITIES: Intact pulses. NEUROLOGIC: Stable. LABORATORY DATA: Shows hemoglobin 9.9, hematocrit 35.7. Electrolytes are pending. Echocardiogram showed an excellent ejection fraction with a good LVH. IMPRESSION: The patient with some cardiac dysrhythmia, now in nonsustained, sinus rhythm. LV function is well preserved. RECOMMENDATIONS: Continue the present care. Continue the respiratory toilet as ordered and will follow up. JASON ROY MD CM:PNTRANS 0740 1514 JASON ROY MD 12/27/18 1513 interface
--- NOTE | ~2018-12-24 | PR ---
[place], [place] PROGRESS NOTE NAME: DONOVAN REYNOLDS UNIT #: [id number] ROOM: 407 DOCTOR: MONICA CARRASQUILLO MD BIRTHDATE: [birth year] DOS: 01/01/2019 SUBJECTIVE: The patient is waiting for transfer to rehab facility. OBJECTIVE: GENERAL APPEARANCE: The patient is alert and oriented x 3, in no visible distress. VITAL SIGNS: Blood pressure 100/60, heart rate of 100 beats per minute, breathing 18 times to 20 times per minute, temperature 98 degrees Fahrenheit. HEENT AND NECK: Exam within normal limits. CARDIOVASCULAR SYSTEM: Heart rate is regular in rate and rhythm. S1 and S2 normally audible. LUNGS: Clear to auscultation. ABDOMEN: Soft, nontender. No obvious organomegaly. Bowel sounds are present. EXTREMITIES: Without significant cyanosis or edema. IMPRESSION: 1. The patient waiting for transfer to intermediate facility for rehabilitation. 2. Multifocal pneumonia, improved with treatment. 3. Adult failure to thrive. The patient is on physical therapy for rehabilitation. 4. Chronic diastolic type congestive heart failure, compensated. 5. Nicotine smoke dependence. The patient has been encouraged to stop smoking cigarettes. 6. Hypothyroidism, replaced with supplements. MONICA CARRASQUILLO MD CM:PNTRANS [id number] MONICA CARRASQUILLO MD 01/02/19 0054 interface
--- NOTE | ~2018-12-24 | PR ---
[place], [place] PROGRESS NOTE NAME: DONOVAN REYNOLDS UNIT #: [id number] ROOM: 407 DOCTOR: RONALD GRAY MD,ANTWON BIRTHDATE: [birth year] DOS: 01/01/2019 PULMONARY PROGRESS NOTE SUBJECTIVE: The patient remains comfortable at this time, resting. The patient denies any coughing, shortness of breath or chest pain. Denies symptoms of fever, chills or any acute hemoptysis. She has been getting oxygen supplementation nasal cannula. OBJECTIVE: VITAL SIGNS: Normal temperature, respiratory rate 18, heart rate 101, blood pressure 130/76. Pulse ox saturation on room air was 100% saturation. HEENT: Examination shows head was atraumatic. Eye nonicterus. NECK: Supple. CARDIOVASCULAR: S1, S2 audible. LUNGS: Noted without any wheezing or crackles. ABDOMEN: Soft, nontender. Bowel sounds present. EXTREMITIES: No acute change. IMPRESSION: 1. Stable respiratory status of with resolving congestive heart failure. 2. Chronic obstructive pulmonary disease exacerbation. 3. Recurrent debility secondary to multiple illnesses. PLAN OF TREATMENT: No change from pulmonary standpoint. Continue current therapy, plan of management. Additional treatment changes were made based on the progression of the illness. Supportive care. ANTWON CARDENAS MD CM:PNTRANS 1248 1646 ANTWON GRAY MD 01/01/19 1645 interface
--- NOTE | ~2018-12-24 | CON ---
[place], [place] REPORT OF CONSULTATION NAME: DONOVAN REYNOLDS [facility] [id number] UNIT #: [id number] ROOM: 407 DOCTOR: RONALD GRAY MD,ANTWON BIRTHDATE: [birth year] DOS: 12/24/2018 PULMONARY CONSULTATION, EVALUATION, AND MANAGEMENT CONSULTATION REQUESTED BY: Lamar Jones M.D. REASON FOR CONSULTATION: For assessment of acute pneumonia and other respiratory problem. HISTORY OF PRESENT ILLNESS:. This is a 73-year-old white female patient, known to me from the past. The patient had been admitted to the hospital as the patient was complaining of increased shortness of breath. She has been seen in the office on Wednesday by Dr. Lamar Jones. She was also complaining of cough with sputum expectoration. She was noted as poor historian, unable to give me any history more accurately. She does report symptoms of cough without any sputum expectoration. There were no symptoms of chest pain reported by the patient. Denies symptoms of wheezing. PAST MEDICAL HISTORY: 1. Pulmonary atrial fibrillation. 2. Chronic obstructive pulmonary disease. 3. Coronary artery disease. 4. Congestive heart failure, diastolic dysfunction. 5. The patient with chronic hypoxic respiratory failure, use of 3 liters of oxygen. 6. Vitamin D deficiency. 7. Deep venous thrombosis. 8. Cerebrovascular accident with residual hemiparesis. CURRENT MEDICATIONS: The current medications, which were administered were noted as IV Bumex, DuoNeb, Xarelto, Coreg, Solu-Medrol 30 mg b.i.d., levothyroxine, IV Levaquin, and Rocephin. DRUG ALLERGIES: NOTED ALLERGY TO AZITHROMYCIN. SOCIAL HISTORY: The patient lives by herself. The patient has smoked cigarettes since teenager for a few years and then it was discontinued. Denies history of alcohol use or illicit drug use. FAMILY HISTORY: Unknown by the patient. REVIEW OF SYSTEMS: Limited review. CONSTITUTIONAL SYMPTOMS: She was complaining of symptoms of fatigue and tiredness. No symptoms of fever or chills. EYES: Denies burning, redness, or tenderness. EARS, NOSE, AND THROAT SYMPTOMS: No sore throat, hoarseness, otalgia, postnasal drainage, or epistaxis. CARDIOVASCULAR SYSTEM: No anginal pain, edema, or pain of the lower extremities. GASTROINTESTINAL SYMPTOMS: Denies dysphagia, nausea, vomiting, diarrhea, [place], [place] REPORT OF CONSULTATION NAME: DONOVAN REYNOLDS UNIT #: [id number] ROOM: 407 DOCTOR: ANTWON JAMES MD BIRTHDATE: [birth year] abdominal pain, hematemesis, melena, or hematochezia. SKIN: Denies abnormal lesions or rashes. CENTRAL NERVOUS SYSTEM: No dizziness, headache, diplopia or syncopal episodes. Remaining systems were reviewed and they were noted all negative. PHYSICAL EXAMINATION: GENERAL: The patient is a 73-year-old female, who has been currently noted to be awake and alert this morning without any acute distress, using oxygen supplementation by nasal cannula. VITAL SIGNS: Height was recorded by the nursing staff with height of 5 feet 5 inches, weight of 162lbs. Otherwise noted as normal temperature, respiratory rate of 16-26, heart rate of 82-118, blood pressure 157/72. Pulse oxygen saturation recorded as 95% saturation on 4 liters nasal cannula with 15 liters of oxygen was noted as only 94% saturation. HEENT: On examination, head was atraumatic. Eyes nonicterus. NECK: Supple. CARDIOVASCULAR SYSTEM: S1, S2 audible. LUNGS: Noted with crackles of the lungs. Noted occasional wheezing. ABDOMEN: Soft. Tbwv-vc-koapkqfs obesity. Bowel sounds present. EXTREMITIES: Noted with edema. MUSCULOSKELETAL: Without any acute deformities. CENTRAL NERVOUS SYSTEM: History of chronic right hemiparesis. LABORATORY DATA: Reviewed. CBC that was done this morning, WBC count is 12.2, hemoglobin is 9.9, and platelet count is 650,000. CMP of the patient this morning, glucose is 272, BUN is 21, and creatinine is 1.72. IMAGING DATA: The chest x-ray that was done, noted increased venous stasis jackelyn with infiltration, patchy would be considered bilaterally. The patient has a CT scan of the chest that was completed this morning, ordered by Dr. Lamar Jones, was also reviewed in detail. It shows ground glass opacity was noted in the lungs. Significant involvement of right lung with area of consolidation with infiltration in the right lower lobe. Small pleural fluids bilaterally as well as a nodule 1.5 cm noted in the right upper lobe as well. IMPRESSION: The patient has been currently admitted to the hospital, was noted with finding consistent with acute congestive heart failure as well as acute exacerbation of chronic obstructive pulmonary disease, pulmonary nodule, right upper lobe, rule out malignant process. The other findings of the CT scan was suggestive of possibility of acute pneumonia in conjunction with acute congestive heart failure is very likely cause. She was also noted mild elevation of troponin, rule out non-ST segment elevation myocardial infarction as well. Lack of the IV contrast does limit the assessment of the mediastinal structures. The patient has been taking chronic anticoagulation as Xarelto 15 mg daily. The patient has atrial fibrillation, which was noted mild rapid ventricular response on admission and then later noted negative. PLAN OF MANAGEMENT: Antibiotic is Levaquin and Rocephin should suffice. The antibiotic to be adjusted for the patient's kidney functions. Bronchodilators. Oxygen supplementation. Diuretics. Cardiology consultation was recommended. [place], [place] REPORT OF CONSULTATION NAME: DONOVAN REYNOLDS UNIT #: [id number] ROOM: 407 DOCTOR: ANTWON JAMES MD BIRTHDATE: [birth year] Solu-Medrol will be continued. Monitor respiratory status closely in Intensive Care Unit with additional treatment changes will be ordered based on the progression of the current illness. Other supportive therapy, plan of management as in progress. Thank you for allowing me to participate in the care of this patient. ANTWON CARDENAS MD CM:CONSTR:REPORT OF CONSULTATION 1630 01/16/19 1144 interface
--- NOTE | ~2018-12-24 | PR ---
[place], [place] PROGRESS NOTE NAME: DONOVAN REYNOLDS UNIT #: [id number] ROOM: 407 DOCTOR: WES PERLA MD BIRTHDATE: [birth year] DOS: 12/29/2018 SUBJECTIVE: She is not short of breath. She is feeling pretty decent. She did not get any diuretic because kidney function had gotten worse. She has not had any palpitation, breathing difficulty, but has not walked. Her appetite is fine. Her preacher is sitting with her and talking to her. OBJECTIVE: VITAL SIGNS: Pulse is 94, blood pressure 138/90. NECK: Normal JVP. LUNGS: Sound pretty clear. EXTREMITIES: No edema in the lower extremity. LABORATORY DATA: BUN and creatinine have come down. RECOMMENDATIONS: When the patient is discharged home, she should be on a loop diuretic and follow up with me in about 3-4 weeks. WES PERLA MD CM:PNTRANS [id number] WES PERLA MD 12/30/18 0139 interface
[~2018-12-24 06:10] MED LIST changes: +BUMETANIDE1 MG PO
--- NOTE | 2018-12-24 06:15 | NUR ---
PATIENT PLACED ON BI-PAP /, BACK UP RATE OF 10, FIO2 50%.
[2018-12-24 06:37] LABS: BASO # 0.1 10*3/uL (0.0-0.1); BASO % 0.7 % (0.0-1.0); EOS # 0.6 10*3/uL (0.0-0.4); EOS % 4.5 % (1.0-4.0); HEMATOCRIT 35.7 % (37.0-47.0); HEMOGLOBIN 9.9 g/dl (12.0-16.0); LYMPH # 2.2 10*3/uL (1.3-4.4); LYMPH % 18.2 % (27.0-41.0); MEAN CELL VOLUME 78.8 fl (81.0-99.0); MEAN CORPUSCULAR HGB 21.9 pg (27.0-31.0); MEAN CORPUSCULAR HGB CONC 27.7 g/dl (33.0-37.0); MONO # 0.9 10*3/uL (0.1-1.0); MONO % 7.1 % (3.0-9.0); NEUT # 8.4 10*3/uL (2.3-7.9); PLATELET COUNT AUTOMATED 650 10*3/uL (130-400); RED BLOOD COUNT 4.53 10*6/uL (4.10-5.10); RED CELL DISTRI WIDTH 15.9 % (0-14.5); WHITE BLOOD COUNT 12.2 10*3/uL (4.8-10.8)
[2018-12-24 06:52] LABS: ACT PARTIAL THROMBO TIME 28.2 SECONDS (20.8-31.5); ALBUMIN 3.1 gm/dl (3.1-4.5); CREATININE 1.72 mg/dL (0.55-1.02); INTERNATIONAL NORM RATIO 1.1 (2.0-3.5); POTASSIUM 4.4 mmol/L (3.5-5.1); TOTAL PROTEIN 7.2 gm/dL (6.4-8.2)
--- NOTE | 2018-12-24 06:53 | NUR ---
DR VILLEDA NOTIFIED OF CRITICAL TROPONIN 0.132
[2018-12-24 06:54] LABS: TROPONIN I 0.132 ng/ml (<0.045)
[2018-12-24 07:03] LABS: BILIRUBIN NEGATIVE (NEGATIVE); BLOOD 2+ (NEGATIVE); CLARITY SL CLOUDY (CLEAR); COLOR YELLOW (YELLOW); GLUCOSE NEGATIVE (NEGATIVE); KETONE NEGATIVE (NEGATIVE); LEUKO ESTERASE TRACE (NEGATIVE); NITRITE NEGATIVE (NEGATIVE); PH 5.5 (5.0-9.0); SPECIFIC GRAVITY 1.015 (1.005-1.030); UROBILINOGEN 0.2 E.U./dl (0.2-1.0)
[2018-12-24 07:19] LABS: BACTERIA 2+; RBC 51-100 rbc/hpf (0-2)
[2018-12-24 07:22] LABS: WBC 16-20 wbc/hpf (0-5)
--- NOTE | 2018-12-24 08:00 | NUR ---
A 73 YEAR OLD FEMALE PATIENT, admitted to [facility], under the services of JOJO Malone MD with a diagnosis of MULTIFOCAL PNEUMONIA. Chief complaint is SUDDEN ONSET SOB AT HOME, PRESSED LIFE ALERT BUTTON, EMS ARRIVED TO FIND PATIENT WITH PO2 OF 70% ROOM AIR Patient arrived via CART WITH RN from ER. Monitor applied. Initial assessment completed. Vital signs taken and recorded. See assessment for past medical history, medications and allergies. Patient and/or family oriented to unit. [facility] visitation policy reviewed. Clothing/patient valuable form completed. RITCHIE PADILLA
--- NOTE | 2018-12-24 08:10 | NUR ---
DR CRUZ IN TO SEE PATIENT AT THIS TIME.
--- NOTE | 2018-12-24 08:15 | NUR ---
HOME MEDICATIONS COUNTED AND VERIFIED WITH JASON MAK. SENT TO PHARMACY AT THIS TIME
[2018-12-24] MEDS ORDERED: XARELTO10 MG PO (08:28)
[2018-12-24] MEDS ORDERED: FUROSEMIDE40 MG PO (08:29)
--- NOTE | 2018-12-24 10:30 | NUR ---
DR CARDENAS ON THE FLOOR AND MADE AWARE OF NEW CONSULT.
--- NOTE | 2018-12-24 11:22 | NUR ---
CONSULT CALLED TO DR PERLA AT THIS TIME, STATES HE WILL SEE PATIENT TOMORROW.
--- NOTE | 2018-12-24 12:05 | NUR ---
DR PERLA MADE AWARE OF TROPONIN #3. ORDER RECIEVED
--- NOTE | 2018-12-24 14:15 | NUR ---
PATIENT SITTING UP IN BED TALKING WITH FAMILY WHO ARE VISITING AT THE BEDSDIE AT THIS TIME. DISPLAYS NO SIGNS OR SYMPTOMS OF DISTRESS. RESPIRATIONS ARE QUIET AND UNLABORED ON 3LITERS NASAL CANNULA. PATIENT DENIES SOB AT REST CURRENTLY. DENIES ANY OTHER NEEDS AT THIS TIME. RN WILL CONTINUE TO MONITOR
--- NOTE | 2018-12-24 15:26 | NUR ---
0840 AM PT PLACED ON BIPAP. TOLERATING WELL. RESPS UNLABORED. 09:25 AM PT ON BIPAP FOR APPROX 45 MINS. PT BECAME AGGITATED AND PULLED BIPAP OFF. RN PLACED PT ON NC. PT REFUSED TO WHERE BIPAP. BIPAP TO BE D/C'D PER DR CARDENAS.
--- NOTE | 2018-12-24 16:01 | NUR ---
DR PERLA NOTIFIED OF ELEVATED TROPONIN. NO NEW ORDERS RECIEVED.
--- NOTE | 2018-12-24 18:30 | NUR ---
PATIENTS BLOOD GLUCOSE LEVEL OBTAINED AT THIS TIME. PATIENT DENIES HAVING DIABTES AND STATES SHE "DOES NOT CHECK SUGARS AT HOME".
--- NOTE | 2018-12-24 19:16 | NUR ---
CHART CHECK COMPLETE.
--- NOTE | 2018-12-24 20:59 | NUR ---
WATCHING TV. NO COMPLAINTS.
[2018-12-25] VITALS: BP 99/58
[2018-12-25 04:00] VITALS: BP 133/75
--- NOTE | 2018-12-25 07:30 | NUR ---
DR CRUZ HERE - DISCUSSED CODE STATUS WITH PATIENT. PER THE PATIENT SHE DOES NOT WANT ANY HEROIC MEASURES BUT AGREED TO MEDICATIONS ONLY. ORDER FOR DNRCCA MEDS ONLY OBTAINED. PAPER SIGNED & PLACED ON CHART
[2018-12-25 08:00] VITALS: BP 136/60; BP 139/57
--- NOTE | 2018-12-25 10:08 | NUR ---
DR CRUZ & DR PERLA HAVE BOTH ROUNDED - AWAITING REPORTS FROM [facility] ABOUT HEART CATH 1 YEAR AGO.
[2018-12-25 12:00] VITALS: BP 127/54
--- NOTE | 2018-12-25 12:58 | NUR ---
ALL WOUNDS VISUALIZED. DR BOSS CALLED TO VIEW THE WOUNDS, HE CAME, ORDERS FOR XRAYS, PODIATRY CONSULT TO BE CALLED AND REQUESTED TO COME TODAY. SCAB TO LEFT ELBOW INTACT. SCABS TO TOP OF TOES MEASURES. RT FOOT TOP 4TH TOE SCAB 1.2x1.2x<0.1 RT FOOT TOP 5TH TOE SCAB 1x1x<0.1 LT FOOT TOP 1ST TOE 1x1.4x<0.1 LT FOOT TOP 2ND TOE MEDIAL 0.5x1x<0.1 LT FOOT TOP 2ND TOE DISTAL 1x1.2x<0.1 RT LEG RED/WARM, SEEPING WITH MULTIPLE AREAS OF OLD WOUNDS VISIBLE, WRAPPED WTIH KERLEX AFTER CLEANSED WITH SALINE. SEE WOUND SCREEN FOR OPEN AREAS.
[2018-12-25 16:00] VITALS: BP 125/41
--- NOTE | 2018-12-25 18:38 | NUR ---
MOVED TO 407-2 - [ATIENT AWARE THAT HER KEYS ARE IN THE TOP DRAWER OF THE BEDSIDE TABLE.
[2018-12-25 20:00] VITALS: BP 153/64
--- NOTE | 2018-12-25 21:33 | NUR ---
PATIENT RESTING IN BED WITH NO NEEDS MADE. BED IN LOWEST POSITION, CALL LIGHT IN REACH
--- NOTE | 2018-12-25 23:04 | NUR ---
24 HR chart check completed.
[2018-12-26] VITALS: BP 134/50
[2018-12-26 08:00] VITALS: BP 138/76
--- NOTE | 2018-12-26 09:00 | NUR ---
Career Center Advisor in to talk to patient. Patient states lives at home alone with her family checking in on her. There are 2 steps in the home. Physician: Dr. Lamar Jones [facility]acy: [facility] Home health services: [facility] for 2.5 hours daily Wednesday through Wednesday Patient's level of ADLs: MINIMAL ASSIST Patient has working utilities: yes DME: walker Follow-up physician's appointment after d/c: she prefers to make her own follow up appt after discharge Does patient want to access PORTAL?: no Discharge plan discussed with patient. She lives at home alone with her family checking in on her. She is independent in her ADLs and ambulates with a walker. Discussed home health care services and she currently has [facility] non-skilled aides 5 days a week for 2.5 hours daily. When medically stable she will be discharged to home with the resumption of her non-skilled aides. LITA VILA
[2018-12-26 12:00] VITALS: BP 120/64
--- NOTE | 2018-12-26 12:59 | NUR ---
SPEECH PATHOLOGY Nursing screen complete. There are no reports of acute communication or swallowing difficulty therefore speech services are not indicated at this time. This dept. will remain available should future needs arise. NICO ANDREWS MSCCC-IOS SOFTWARE ENGINEER
[2018-12-26 16:00] VITALS: BP 125/65
[2018-12-26 20:00] VITALS: BP 110/63
--- NOTE | 2018-12-26 23:33 | NUR ---
24 HR chart check completed.
[2018-12-27] VITALS: BP 107/63
--- NOTE | 2018-12-27 00:57 | NUR ---
PATIENT RESTING IN BED WITH NO NEEDS MADE. BED IN LOWEST POSITION, CALL LIGHT IN REACH
--- NOTE | 2018-12-27 05:29 | NUR ---
DR CARRASQUILLO AWARE OF PATIENT C/O SORE THROAT. ORDER TAKEN
[2018-12-27 08:00] VITALS: BP 110/68
--- NOTE | 2018-12-27 08:00 | NUR ---
Awning Hanger Helper in to see patient. No new needs or request at this time. When medically stable she will be discharged to home with resumption of her [facility] aides 2.5 hours daily Wednesday through Wednesday.
--- NOTE | 2018-12-27 11:56 | NUR ---
Received snf order. In to see patient to discuss discharge planning. I asked if she had talked with Dr. Jones about going to a retirement facility. She said yes, she had talked with her and told her NO absolutely not, they make her worse! Notified Herminia RADFORD.
[2018-12-27 12:00] VITALS: BP 133/60
--- NOTE | 2018-12-27 12:07 | NUR ---
PHYSICAL THERAPY PAtient reports no PT right now as " I am waiting for my lunch." This patient is very familiar to this PT and always very particular. Will attempt at a later time or date and initiate when patient is willing/ready. Thank you for this referral. Fransisca Triplett,PT
--- NOTE | 2018-12-27 13:48 | NUR ---
PHYSICAL THERAPY PAtient requests no PT this date. Reports she will not particpate "without clothes". Attempted multiple times to encourage and ensure she would be covered completely- Educated patient that PT would get multiple gowns ect. PAtient would not change her mind. Again, this patient well known to this PT and this is not unusualy bvehaviors for this patient. Asked patient if she desired PT order cancelled or for PT to attempt again tomorrow- she would like PT to stop to checkon her tomorrow. Fransisca Ruiz,PT
[2018-12-27 16:00] VITALS: BP 127/57
--- NOTE | 2018-12-27 19:20 | NUR ---
REPORT OBTAINED FROM BARRY-OBDULIO. PATIENT IS RESTING IN BED, EYES CLOSED. NO DISTRESS NOTED, RESP ARE ERND ON ROOM AIR. BED IS LOCKED IN LOWEST POSITION. CALL LIGHT LEFT WITHIN REACH.
[2018-12-27 20:00] VITALS: BP 100/87
--- NOTE | 2018-12-27 21:17 | NUR ---
DURING ASSESSMENT AND MEDICATION ADMINISTRATION, PATIENT YELLED AT NURSE AND STATED SHE DID NOT WANT TO TALK D/T THROAT DISCOMFORT. WHEN OFFERED CEPACOL PATIENT REFUSED STATED "I DONT WANT THAT CRAP AND I DON'T WANT TO TALK." PATIENT DID HOWEVER AGREED TO LET THIS NURSE DO ASSESSMENT AND GIVE HS MEDICATIONS.
[2018-12-28] VITALS: BP 114/57
[2018-12-28 06:55] LABS: CREATININE 2.12 mg/dL (0.55-1.02); HEMATOCRIT 35.9 % (37.0-47.0); MEAN CELL VOLUME 75.6 fl (81.0-99.0); MEAN CORPUSCULAR HGB 21.1 pg (27.0-31.0); MEAN CORPUSCULAR HGB CONC 27.9 g/dl (33.0-37.0); MEAN PLATELET VOLUME 10.8 fl (9.6-12.3); NUCLEATED RED BLOOD CELL 0.1 % (0.0-0.0); PLATELET COUNT AUTOMATED 536 10*3/uL (130-400); POTASSIUM 4.8 mmol/L (3.5-5.1); RED BLOOD COUNT 4.75 10*6/uL (4.10-5.10); RED CELL DISTRI WIDTH 15.8 % (0-14.5); WHITE BLOOD COUNT 16.4 10*3/uL (4.8-10.8)
[2018-12-28 07:40] LABS: BASOPHILS 1 % (0-1); MICROCYTOSIS SLIGHT; PLATELET SUFFICIENCY HIGH (NORMAL); POLYCHROMASIA SLIGHT; TOTAL CELLS COUNTED 100 #CELLS
[2018-12-28 08:00] VITALS: BP 154/53
--- NOTE | 2018-12-28 08:00 | NUR ---
Manager Sign in to see patient. Discussed short term. SNF and she is agreeable. When given a list of facilities she chose [facility]. corporate event planner notified.
--- NOTE | 2018-12-28 10:38 | NUR ---
Occupational Therapy evaluation completed on 4 with full eval to follow. Precautions include high anxiety, fall risk, limited right shoulder pain, assist +2 with transfers,moderate complexity level 19872 via chart review, testing and evaluation. Recommend OT per POC and SNF to enable return home. Thank you for this referral. Vivian Gallagher OTR/l
--- NOTE | 2018-12-28 11:02 | NUR ---
PHYSICAL THERAPY Patient evaluated on 4, full evaluation to follow. Continue with PT as per plan of care with fall, very particular ( about how you adress her, about being touched and being told what to do) and acute debility precautions. Will require SNF if willing to participate. PAtient is high complexity via chart review, tests and evaluation: [id number]. Thank you for this referral. Fransisca Ruiz,PT
[2018-12-28 12:00] VITALS: BP 101/80
--- NOTE | 2018-12-28 14:42 | NUR ---
Patient referral faxed to [facility] for short term snf placement. Patient will require precert. Waiting for review/acceptance.
[2018-12-28 16:00] VITALS: BP 123/31; BP 166/64
[2018-12-28 20:00] VITALS: BP 92/58
[2018-12-29] VITALS: BP 124/41
--- NOTE | 2018-12-29 03:13 | NUR ---
24 HR chart check completed.
[2018-12-29 06:29] LABS: CREATININE 1.98 mg/dL (0.55-1.02); POTASSIUM 4.1 mmol/L (3.5-5.1)
[2018-12-29 08:00] VITALS: BP 128/78
--- NOTE | 2018-12-29 08:00 | NUR ---
Spoke to patient regarding [facility] not having available beds at this time. When provided with a list of facilities she chose [facility]. urban planner notified.
--- NOTE | 2018-12-29 08:14 | NUR ---
OT NOTE Attempted to see pt this A.M. for OT session and upon arrival pt was supine in bed. Pt get very aggitated upon therapist arrival stating "I want to eat my breakfast first." Will check back at a later time. ANGEL Terrazas/Larry
--- NOTE | 2018-12-29 08:20 | NUR ---
Counting Machine Operator in to see patient to discuss [facility] being full. When provided with a list of facilities she chose [facility]. landscape architect and planner notified.
--- NOTE | 2018-12-29 08:40 | NUR ---
[facility] cannot accept this patient due to no available beds at this time. Patient requesting a referral to [facility]. Faxed referral to [facility], but they are full also, however they can accept patient to [facility]. Asked them to continue referral for [facility] and if accepted to start precert. Waiting for auth.
[2018-12-29] MEDS ORDERED: Ipratropium Brom3 ML NEB (08:47)
[2018-12-29] MEDS ORDERED: PREDNISONE10 MG PO (08:47)
[2018-12-29] MEDS ORDERED: BUMETANIDE0.5 MG PO (08:47)
[2018-12-29] MEDS ORDERED: KLOR-CON M1010 ME1 PO (08:47)
[2018-12-29] MEDS ORDERED: LEVOFLOXACIN250 M2 PO (08:47)
--- NOTE | 2018-12-29 08:59 | NUR ---
PHYSICAL THERAPY Patient presented to therapy in supine with very unhappy and negative attitude this morning towards therapy. Patient declined treatment this AM due to not feelign like it and wanting her breakfast first. Will check back later this morning. ANGEL Lovett also present during this conversation. OSMANY HENRY TERRAZZO MECHANIC HELPER
--- NOTE | 2018-12-29 09:47 | NUR ---
OT NOTE Second attempt made to see pt this A.M. for OT session and upon arrival pt was under nursing care for a bed bath. Will check back at a later time/date. Continue with POC as able. ANGEL Terrazas/Larry
--- NOTE | 2018-12-29 10:00 | NUR ---
PHYSICAL THERAPY Patient was approached for therapy session and was being cared for Nursing students and RN Rosetta at this time. Will check back this afternoon. OSMANY HENRY TREASURY ACCOUNTANT
--- NOTE | 2018-12-29 11:56 | NUR ---
PHYSICAL THERAPY CO-SIGN I approve of the Phyical Therapy notes written above. PATRICK SPENCER PT
[2018-12-29 12:00] VITALS: BP 110/59
--- NOTE | 2018-12-29 13:20 | NUR ---
OT NOTE Third attempt made to see pt for OT session and upon arrival pt would not look at therapist when speaking and stated "I want you to leave me alone and not come back." JUNIOR ACCOUNTANT Wallace Camilo present for conversation and pt's nurse Rosetta notified. ANGEL Terrazas/Larry
--- NOTE | 2018-12-29 13:21 | NUR ---
PHYSICAL THERAPY Patient adamently refused therapy this afternoon saying she doesn't want therapy !!! She also stated that she wants left alone and taken off therapy treatment list ! Patient was informed that her doctor would be informed of her decision and she would probabaly be discharged from therapy. Patient is very angry about her care here at [facility]. OSMANY HENRY LUMBER PILER
[2018-12-29 16:00] VITALS: BP 138/90
[2018-12-29 20:00] VITALS: BP 120/51
[2018-12-30] VITALS: BP 106/53
--- NOTE | 2018-12-30 07:50 | NUR ---
OT NOTE Attempted to see pt this A.M. for OT session and upon arrival pt was on a breathing treatment. Will check back at a later time/date as able. ANGEL Terrazas/Larry
[2018-12-30 08:00] VITALS: BP 120/54
--- NOTE | 2018-12-30 09:00 | NUR ---
Meat Inspector in to see patient. No new needs or request at this time. When medically stable and auth is received she will be discharged to [facility]. media planner following.
--- NOTE | 2018-12-30 15:02 | NUR ---
PHYSICAL THERAPY checked on pt this afternoon. when asked pt if she could participate in PT services she said no, because she is not wearing regular clothes. informed pt we can put a gown over her back to cover her up, she said no. Will check back at a later date. OSMANY HENRY SPECIAL EDUCATION PARAEDUCATOR
[2018-12-30 16:00] VITALS: BP 110/58
--- NOTE | 2018-12-30 16:07 | NUR ---
OCCUPATIONAL THERAPY CO-SIGN I approve of the Occupational Therapy notes written above. ANKIT HERNANDEZ OTR/Larry
[2018-12-31] VITALS: BP 104/46
--- NOTE | 2018-12-31 06:00 | NUR ---
PATIENT REFUSING 6 AM BLOOD SUGAR. STATED HER BLOOD SUGARS HAVE BEEN GOOD AND SHE DID NOT SEE ANY REASON TO DO THEM AND THAT HER FINGERS ARE GETTING SORE.
[2018-12-31 08:00] VITALS: BP 115/62
[2018-12-31 12:00] VITALS: BP 124/76
--- NOTE | 2018-12-31 14:46 | NUR ---
WATCHING TV. NO COMPLAINTS VOICED. CALL LIGHT IN REACH.
[2018-12-31 16:00] VITALS: BP 118/80
--- NOTE | 2018-12-31 16:04 | NUR ---
PT REFUSED TO HAVE BSG TAKEN AT THIS TIME.
[2018-12-31 20:00] VITALS: BP 107/41
--- NOTE | 2018-12-31 20:00 | NUR ---
PT RESTING IN BED, DENIES ANY COMPLAINTS AT THIS TIME. STATES BREATHING HAS IMPROVED, LUNGS DIM/CLEAR, ON ROOM AIR. CALL LIGHT WITHIN REACH.
[2019-01-01] VITALS: BP 97/67
--- NOTE | 2019-01-01 02:02 | NUR ---
PT SLEEPING, NO DISTRESS NOTED.
[2019-01-01 08:00] VITALS: BP 130/76
--- NOTE | 2019-01-01 09:39 | NUR ---
SLEEPING, WILL ATTEMPT AM MEDS AT A LATER TIME.
--- NOTE | 2019-01-01 10:09 | NUR ---
SLEEPING, NO SXS OF DISTRESS NOTED. RESPERS EASY & REGUALR. CALL LIGHT IN REACH. WILL ATTEMPT MEDS AT A LATER TIME.
--- NOTE | 2019-01-01 10:42 | NUR ---
AWAKENED FOR AM MEDS. ASKED NURSE TO COME BACK LATER FOR THEM. REFUSED MEDS AT THIS TIME.
--- NOTE | 2019-01-01 11:52 | NUR ---
PT AWAKE. OK FOR AM MEDS AT THIS. NO COMPLAINTS VOICED. CALL LIGHT IN REACH. EATING LUNCH.
[2019-01-01 16:00] VITALS: BP 99/64
--- NOTE | 2019-01-01 17:55 | NUR ---
PT REFUSING BSG CHECK AT THIS TIME.
--- NOTE | 2019-01-01 18:33 | NUR ---
PT WALKED FROM BED TO DOOR WAY AND BACK TO BED. TOLERATED WELL. CALL LIGHT IN REACH.
--- NOTE | 2019-01-01 20:53 | NUR ---
PATIENT'S HR ELEVATED IN 120S-130S PER PULSE RATE. PATIENT IS NOT MONITORED. EKG ORDERED PER POLICY. PATIENT DENIES ANY SYMPTOMS. POSSIBLE ST ELEVATION NOTED. THIS RN CALLED TO REVIEW EKG. EKGs SENT TO VIA FAX/TEXT MESSAGE. DISCUSSED HR IN 120S PER PULSE RATE. INSTRUCTED TO INCREASE COREG FROM 6.25 MG TO 12.5 MG.
--- NOTE | 2019-01-01 21:05 | NUR ---
UPDATED ON MEDICATION CHANGES PER . INSTRUCTED TO PLACE PATIENT ON IMPORT COORDINATOR. NO OTHER ORDERS RECEIVED AT THIS TIME.
--- NOTE | 2019-01-01 21:20 | NUR ---
EARLY MORNING APPLIED PER ORDER.
--- NOTE | 2019-01-01 21:48 | NUR ---
NOTIFIED OF HR IN 70S AT THIS TIME WITH BP 104/48. QUESTIONED WHAT DOSE OF COREG TO GIVE. INSTRUCTED TO CHANGE ORDER BACK TO 6.25 MG.
[2019-01-01 22:20] VITALS: BP 123/53
[2019-01-02] VITALS: BP 126/60
[2019-01-02 04:00] VITALS: BP 102/59
[2019-01-02 08:00] VITALS: BP 104/52
--- NOTE | 2019-01-02 08:03 | NUR ---
Patient continuously refusing PT and OT. Patient cannot go to snf as we are unable to obtain precert without PT/OT.
--- NOTE | 2019-01-02 08:06 | NUR ---
PHYSICAL THERAPY checked on pt this morning, pt was very impulsive and yelled "I can walk, and I am not going to walk right now". OSMANY HENRY ORGAN PIPE VOICER
--- NOTE | 2019-01-02 08:24 | NUR ---
OT NOTE Attempted to see pt this A.M. for OT session and upon arrival pt was supine in bed. Requested for pt to participate in therapy and pt stated "I am not working with you, it is because of you people I have to go home." "You are all inconsiderate of my time, it is to be around my schedule not yours." Will continue with POC as able. ANGLE Terrazas/Larry
[2019-01-02] MEDS ORDERED: XARELTO10 MG PO (08:26)
[2019-01-02] MEDS ORDERED: LEVOFLOXACIN250 M2 PO (08:26)
[2019-01-02] MEDS ORDERED: Synthroid,Levo25 MCG PO (08:26)
[2019-01-02] MEDS ORDERED: CARVEDILOL6.25 MG PO (08:26)
[2019-01-02] MEDS ORDERED: LEVOTHYROXINE200 MC2 PO (08:26)
[2019-01-02] MEDS ORDERED: ZOCOR10 MG PO (08:36)
[2019-01-02 09:52] LABS: CREATININE 2.11 mg/dL (0.55-1.02); POTASSIUM 4.7 mmol/L (3.5-5.1)
--- NOTE | 2019-01-02 10:56 | NUR ---
SPOKE WITH DR. CRUZ AT THIS TIME. MADE AWARE OF RESULTS OF MORNING LABS AND CXRAY. STATES PATIENT IS OKAY FOR DISCHARGE AT THIS TIME.
--- NOTE | 2019-01-02 11:10 | NUR ---
Discharge instructions reviewed with patient/family. Patient receptive and verbalizes understanding. Follow-up care arranged. Written instructions given to patient/family. WENT OVER DISCHARGE PACKET WITH PATIENT. PATIENT IN A HURRY TO GET OUT OF HOSPITAL AND RUSHING NURSE THROUGH FOLLOW UP INSTRUCTIONS. PRINTED PRESCRIPTIONS HANDED TO PATIENT. HEART MONITOR REMOVED AND PLACED IN NURSES STATION. CAB CALLED FOR PATIENT BY CASE MANAGEMENT. PATIENT ACCOMPANIED TO CAB VIA WHEELCHAIR BY STAFF AT THIS TIME. ALL BELONGINGS WITH PATIENT. PATIENT DENIES ANY NEEDS OR CONCERNS. BAKARI FERRARO E
--- NOTE | 2019-01-02 16:07 | NUR ---
PHYSICAL THERAPY CO-SIGN I approve of the Phyical Therapy notes written above. PATRICK SPENCER PT
--- NOTE | 2019-01-02 16:10 | NUR ---
OCCUPATIONAL THERAPY CO-SIGN I approve of the Occupational Therapy notes written above. ANKIT HERNANDEZ OTR/Larry
== END 2019-01-02 11:10 | disposition home or self-care (01) | DRG 177 ==
LOC: ED 06:10 → EDHOLD 07:16 → 4E 07:16 → ICCU 07:35 → 4E 12-25 18:35
PROVIDERS: Emergency Medicine; ADMIT Internal Medicine
PROC: 5A09357 Assistance with Respiratory Ventilation, Less than 24 Consecutive Hours, Continuous Positive Airway Pressure (ICD-10-PCS; principal; 2018-12-24)
DX: J15.6 Pneumonia due to other Gram-negative bacteria (principal); J96.21 Acute and chronic respiratory failure with hypoxia; I50.43 Acute on chronic combined systolic (congestive) and diastolic (congestive) heart failure; J44.1 Chronic obstructive pulmonary disease with (acute) exacerbation; J44.0 Chronic obstructive pulmonary disease with (acute) lower respiratory infection; I13.0 Hypertensive heart and chronic kidney disease with heart failure and stage 1 through stage 4 chronic kidney disease, or unspecified chronic kidney disease; N17.9 Acute kidney failure, unspecified; I25.10 Atherosclerotic heart disease of native coronary artery without angina pectoris; N18.9 Chronic kidney disease, unspecified; R74.8 Abnormal levels of other serum enzymes; R53.81 Other malaise; I49.9 Cardiac arrhythmia, unspecified; I27.20 Pulmonary hypertension, unspecified; R91.1 Solitary pulmonary nodule; E66.9 Obesity, unspecified; R62.7 Adult failure to thrive; F17.210 Nicotine dependence, cigarettes, uncomplicated; I35.0 Nonrheumatic aortic (valve) stenosis; E03.9 Hypothyroidism, unspecified; I48.2 Chronic atrial fibrillation; I89.0 Lymphedema, not elsewhere classified; Y92.238 Other place in hospital as the place of occurrence of the external cause; T50.2X5A Adverse effect of carbonic-anhydrase inhibitors, benzothiadiazides and other diuretics, initial encounter; Z86.718 Personal history of other venous thrombosis and embolism; Z88.1 Allergy status to other antibiotic agents; Z86.73 Personal history of transient ischemic attack (TIA), and cerebral infarction without residual deficits; I25.2 Old myocardial infarction; Z87.01 Personal history of pneumonia (recurrent); Z90.49 Acquired absence of other specified parts of digestive tract; Z90.710 Acquired absence of both cervix and uterus; Z71.6 Tobacco abuse counseling; Z68.26 Body mass index [BMI] 26.0-26.9, adult

== ENCOUNTER 2019-05-11 11:27 | Inpatient (IN) | payer OTHER ==
[~2019-05-11] VITALS: Ht 162.6 cm; Wt 71.2 kg
[2019-05-11] VITALS (10 sets, daily range): BP systolic 94–115; BP diastolic 35–79
--- NOTE | ~2019-05-11 | DS ---
[place], [place] DISCHARGE SUMMARY NAME: DONOVAN REYNOLDS UNIT #: [id number] ROOM: 511 DOCTOR: JOJO CRUZ MD BIRTHDATE: [birth year] DOS: 05/14/2019 DIAGNOSES: 1. Acute precipitous drop in hematocrit, refused all workup. 2. Severe aortic stenosis, refusing any surgical evaluation. 3. Chronic diastolic congestive heart failure. 4. Urinary tract infection with Escherichia coli. 5. Hypothyroidism. 6. Chronic atrial fibrillation, long-term use of anticoagulants. 7. History of deep venous thrombosis. 8. Chronic obstructive pulmonary disease. 9. Continued nicotine abuse. HOSPITAL COURSE: This patient is very well known to us, 73 years old, comes in from the assisted living after her blood count was found to be quite low at 6.9. Please refer to H and P dictated by Dr. Wise for further details. After admission, she also was found to have acute elevated BUN and creatinine. Dr. Fajardo was consulted. She has chronic kidney disease. Diuretics were continued. Potassium supplements were discontinued. Urine culture was sent. Urine grew E. coli, for which she is placed on Ceftin. The patient is stable. Kidney functions are pretty much stable. The patient over the last several days has refused all workup and so therefore, the plan is to discharge her back to assisted living and continue comfort care there. I spoke to the patient in length about hospice. She is agreeable. Hospice consultation will be obtained when she arrives at [facility]. JOJO CRUZ MD CM:DISCHARG [id number] JOJO CRUZ MD 05/14/19 1227 interface
--- NOTE | ~2019-05-11 | CON ---
[place], [place] REPORT OF CONSULTATION NAME: DONOVAN REYNOLDS UNIT #: [id number] ROOM: 511 DOCTOR: RONALD GRAY MDANTWON BIRTHDATE: [birth year] DOS: 05/12/2019 PULMONARY CONSULTATION, EVALUATION, AND MANAGEMENT CONSULTATION REQUESTED BY: Ashvin Wise MD REASON FOR CONSULTATION: Assessment of current symptoms of shortness of breath. HISTORY OF PRESENT ILLNESS: This is a 73-year-old white female patient is known to me from the past. She has been admitted to the hospitalist service on 05/11/2019. She has been admitted to the hospital for the medical management of acute anemia. Hemoglobin noted 6.9. The patient admitted for the blood transfusion and workup for the anemia. She has been reported with significant shortness breath yesterday as well. Chest x-ray done that has been noted with findings of congestive heart failure. She has been given diuretic therapy for that. She has reported reduction in shortness of breath requiring oxygen supplementation nasal cannula. Diffusing any intervention for further assessment per nursing staff; however, the patient was noted cooperative with examination as the patient was seen this morning in the room. She was stating she does not have any problems or symptoms of like to return back to assisted living facility and does not want to be continued to be admitted to the hospital for any medical management. She has not reporting and denying all the questions and answers to no when she has including wheezing, coughing, chest pain or other similar symptoms review. REVIEW OF SYSTEMS: Quite limited since the patient is unable to cooperate with and give me any history. Review of systems, which was completed. All the 12 systems and the answer was given no by the patient. PAST MEDICAL HISTORY: Noted with past hospitalization: 1. She was treated in the hospital in 12/2018, treated for [id number] exacerbation of COPD, acute pneumonia, congestive heart failure and other medical illnesses. 2. History of COPD. 3. Permanent atrial fibrillation. 4. Coronary artery disease. 5. Congestive heart failure, preserved ejection fraction. 6. Chronic hypoxic respiratory failure, use of the need of oxygen 3 liters nasal canula continuous requirement. 8. History of deep venous thrombosis. 9. Vitamin D deficiency. 10. Past cerebrovascular accident with residual hemiparesis. SOCIAL HISTORY: The patient is currently a resident of assisted living facility at the [facility]. She has been noted tobacco use since teenager, a pack of cigarettes per day, discontinued a few years ago. Further details were unknown stated by the patient. FAMILY HISTORY: Unknown. [place], [place] REPORT OF CONSULTATION NAME: DONOVAN REYNOLDS UNIT #: [id number] ROOM: 511 DOCTOR: RONALD GRAY MD,ANTWON BIRTHDATE: [birth year] PAST SURGICAL HISTORY: 1. Complete hysterectomy. 2. Cholecystectomy. CURRENT MEDICATIONS: Which have been administered on this hospitalization noted as levothyroxine, simvastatin, Coreg, DuoNeb, Ringer's lactate infusion. She has been given intravenous normal saline, total of 1000 mL divided into boluses yesterday ordered by the Nephrology Services. DRUG ALLERGY HISTORY: Noted as allergies to: 1. ZITHROMAX. 2. AZITHROMYCIN CAUSING RASH AND HIVES. PHYSICAL EXAMINATION: GENERAL: A 73-year-old white female patient with height of 5 feet 4 inches, weight of 183 pounds, BMI 31.2. Currently, comfortably resting cooperative with examination. VITAL SIGNS: Normal temperature, respiratory rate of 16-20, heart rate of 91-82. The blood pressure 136/60-98/57 recorded. Pulse ox saturation on 3 liters nasal cannula recorded 100% saturation. HEENT: Examination shows head was atraumatic. Eyes nonicterus. NECK: Supple. CARDIOVASCULAR: S1, S2 was audible. LUNGS: Noted decreased breath sounds with crackles scattered in the lungs bilaterally. ABDOMEN: Soft, nontender. EXTREMITIES: Noted with 2+ pitting edema bilateral lower extremity with all the finding of cellulitis was also noted of the lower extremity skin. MUSCULOSKELETAL: Without deformities. CENTRAL NERVOUS SYSTEM: Limited exam with general weakness and fatigue. MUSCULOSKELETAL: Without any gross deformities. LABORATORY DATA: Which has been assessed. CBC that was done on 05/11/2019, hemoglobin 6.9, hematocrit 27.1, WBC count normal, and platelet count normal, done as an outpatient. The CMP that was done on 05/11/2019, BUN 41, creatinine 1.94. Remaining electrolytes were normal. BMP that was done this morning, BUN 43, creatinine 1.98. CBC that was done on 05/12/2019, WBC count 17.9, hemoglobin 8.1, hematocrit 31.0, platelet count 438,000. The chest x-ray that was done 2 views yesterday was completed, was noted with findings of interstitial edema and congestive heart failure with small lung volumes. IMPRESSION: 1. The patient will be currently admitted to the hospital with symptomatic anemia with shortness of breath. Additionally, shortness of breath occurring for congestive heart failure with preserved ejection fraction. 2. Elevation of BUN and creatinine for this patient. Previous creatinine was noted to be able patient from the lowest of 1.43 in 01/2019 and the last creatinine on 03/02/2019, noted 1.82 at that time. Acute groin injury will be considered secondary to congestive heart failure is the likely cause. 3. Uncooperative behavior, which has been known previously. There was no [place], [place] REPORT OF CONSULTATION NAME: DONOVAN REYNOLDS UNIT #: [id number] ROOM: [facility] DOCTOR: ANTWON JAMES MD BIRTHDATE: [birth year] clinical suspicion of pneumonia noted at the present time. PLAN OF MANAGEMENT: The patient would be continuing the diuretic. The patient will be recommended about diuretic therapy. Monitor kidney functions. Cardiology assessment if not done, so it should be done. The patient is already being assessed by Nephrology Services, follow their recommendations. Titrate oxygen supplementation to maintain pulse ox 92% or greater. The patient does have signs of acute severe respiratory distress and has been ordered arterial blood gases to use the bilevel treatment for the medical management of any respiratory distress, but the patient absolutely refusing to do any further workup including arterial blood gases. Overall prognosis remains guarded. She has been also been given blood transfusion with hemoglobin and hematocrit. Post-transfusion noted hemoglobin 8.5, hematocrit 32.4. Chest x-ray monitoring will be continued. Repeat chest x-ray today to assess the progression of the current pulmonary edema picture and congestive heart failure. Also, obtain ultrasound of bilateral lower extremity to rule out deep venous thrombosis as well. Thanks for allowing me to participate in the care of this patient. ANTWON CARDENAS MD CM:CONSTR:REPORT OF CONSULTATION 1130 05/12/192031 interface
--- NOTE | ~2019-05-11 | WRIGHTHP ---
[place], [place] PATIENT HISTORY AND PHYSICAL EXAM [id number] UNIT #: [id number] ROOM: 511 DOCTOR: MONICA CARRASQUILLO MD BIRTHDATE: [birth year] DOS: 05/11/2019 HISTORY OF PRESENT ILLNESS: The patient is a 73-year-old female with past medical history of; 1. Advanced adult failure to thrive. 2. Chronic diastolic type congestive heart failure. 3. Moderate to severe aortic stenosis. 4. Hypothyroidism. 5. Chronic atrial fibrillation. 6. History of deep vein thrombosis. 7. Chronic obstructive pulmonary disease. 8. Continued nicotine smoke dependence. The patient presented to the Emergency Department at [facility] for anemia from the assisted living facility. She had a hemoglobin of 6.9. Blood was ordered and the patient was admitted to a monitored bed because she maintains a DNR arrest code status. The patient is not being able to walk for a year. There were no significant complaints of increased shortness of breath with that admission. The patient is somewhat hypotensive and requiring 3 liters of oxygen when apparently she does not take oxygen at the assisted living facility. Dr. Hernadez, the box lidder was consulted and a chest x-ray has been ordered. REVIEW OF SYSTEMS: RESPIRATORY: Increasing shortness of breath. GASTROINTESTINAL: No nausea, vomiting, diarrhea, constipation. CARDIOVASCULAR SYSTEM: No chest pains or palpitations. FAMILY HISTORY: Noncontributory. HOME MEDICATIONS: DuoNeb, potassium, Bumex, levothyroxine, simvastatin, Coreg. SOCIAL HISTORY: Lives at assisted living facility. Nicotine smoke dependence. ALLERGIES: Known allergies to ERYTHROMYCIN which causes rash and hives. PHYSICAL EXAMINATION: GENERAL: Alert, oriented, short of breath, obese, very anxious and uncooperative. VITAL SIGNS: Blood pressure 98/50, heart rate 78 beats per minute, breathing 16-24 times per minute, temperature 98.4 degrees Fahrenheit. HEENT AND NECK: Extraocular movements are intact. Sclerae are anicteric. Oral mucosa is moist and clean. No obvious facial weakness. Neck is supple without any lymphadenopathy. No thyromegaly. No JVD. No carotid arterial bruits. LUNGS: Show decreased breath sounds all over and mild expiratory wheezing. CARDIOVASCULAR SYSTEM: Heart rate is regular in rate and rhythm. S1 and S2 normally audible. No significant murmur or any other abnormal cardiac sounds. ABDOMEN: Soft, nontender. No obvious organomegaly. Bowel sounds are present. No obvious herniation. EXTREMITIES: Obesity with 2-3+ leg and pedal edema. [place], [place] PATIENT HISTORY AND PHYSICAL EXAM NAME: DONOVAN REYNOLDS UNIT #: [id number] ROOM: 511 DOCTOR: MONICA CARRASQUILLO MD BIRTHDATE: [birth year] CENTRAL NERVOUS SYSTEM: Alert and oriented x 3. Cranial nerves II-XII are intact. Speech is normal. The patient is able to move all extremities. Normal muscle strength. Deep tendon reflexes are equal on both sides. Plantars were downgoing. IMPRESSION: 1. The patient with acute over chronic diastolic type congestive heart failure with severe aortic stenosis and poor prognosis in the long run. 2. Acute exacerbation of chronic obstructive pulmonary disease with nicotine smoke dependence. Dr. Hernadez consulted to help with management. The patient started on DuoNeb. 3. Hypothyroidism, replaced with levothyroxine. 4. Mixed hyperlipidemia, treated with simvastatin. 5. Advanced adult failure to thrive and ambulatory dysfunction. The patient started on physical therapy. 6. Advanced adult failure to thrive. We are taking bedsore precautions. 7. The patient with progressive anemia, hemoglobin of 6.9 and is receiving blood. Stool for IFOBT ordered and the patient would require a GI workup and hemoglobins to be monitored. The patient is receiving blood transfusion. 8. Chronic atrial fibrillation. The patient is anticoagulated with Xarelto. Heart rate is controlled. 9. Mixed hyperlipidemia, treated with simvastatin. MONICA CARRASQUILLO MD CM:HISPHYS:PATIENT HISTORY AND PHYSICAL EXAMINATION 51 09 MONICA CARRASQUILLO MD 05/11/192153 interface
--- NOTE | ~2019-05-11 | CON ---
[place], [place] REPORT OF CONSULTATION NAME: DONOVAN REYNOLDS UNIT #: [id number] ROOM: 511 DOCTOR: DOUG JEFFRIESYADIRA BIRTHDATE: [birth year] DOS: 05/12/2019 GASTROENDOSCOPIC REPORT HISTORY OF PRESENT ILLNESS: The patient is a 73-year-old patient who has presented with chief complaint of profound anemia, shortness of breath, hemoglobin of 6, status post multi-transfusion. The patient has been under treatment for atrial fibrillation and on anticoagulant and she has been anemic. At the time of admission, her H and H was 6.9 and 27, microcytic indices. Comprehensive metabolic panel: BUN and creatinine 41 and 1.9. Chest x-ray showed suggestive of pulmonary edema. H and H was improved gradually after multi-transfusion. Repeat, latest set of H and H of 8 and 31, white blood cells 17.9. Chest x-ray repeat shows persistent cardiomegaly, persistent interstitial edema, persistent bilateral effusion, severe osteoporosis, all has been recognized. PAST MEDICAL HISTORY: AFib, congestive failure, CVA, hypothyroidism, obesity, pneumonia, pulmonary edema, and non-STEMI myocardial infarction. PAST SURGICAL HISTORY: Fractured humerus, podiatric care management. Also associated with hysterectomy, cholecystectomy, and endoscopies. SOCIAL HISTORY: Nonsmoker, nonalcohol consumer. FAMILY HISTORY: Noncontributory. ALLERGIES: REVIEWED TO BE AZITHROMYCIN. MEDICATIONS: List reviewed. REVIEW OF SYSTEMS: HEENT: Denies double vision, blurred vision. RESPIRATORY: Admits to shortness of breath. CARDIOVASCULAR: Denies acute chest pain. DIGESTIVE SYSTEM: Anemia. No hematemesis, no hematochezia. PHYSICAL EXAMINATION: VITAL SIGNS: Stable. HEENT: Facial characteristics of the previous cerebrovascular accident on the right side. NECK: Supple. LUNGS: Few scattered rhonchi, bibasilar. HEART: Normal sinus rhythm. Grade 3/6 systolic murmur, what appears to be aortic area. ABDOMEN: Soft. No hepato-organomegaly. Bowel sounds present. No pulsatile mass. EXTREMITIES: No cyanosis, no pedal edema. NEUROLOGIC: Alert and very oriented. IMPRESSION AND PLAN: I have discussed about her anemia. She does not want any [place], [place] REPORT OF CONSULTATION NAME: DONOVAN REYNOLDS UNIT #: [id number] ROOM: 511 DOCTOR: DOUG JEFFRIES,YADIRA BIRTHDATE: [birth year] investigation done. She is continuing with the transfusion. Therefore, we are going to stay with the same course. Supportive management otherwise. Protonix 40 mg day. Follow up on H and H. OTHER ADJUNCTIVE DIAGNOSES: As outlined above in past medical and surgical history. Thank you very much indeed. YADIRA CAMACHO MD CM:CONSTR:REPORT OF CONSULTATION 2104 05/19/19 1012 interface
--- NOTE | ~2019-05-11 | PR ---
[place], [place] PROGRESS NOTE NAME: DONOVAN REYNOLDS UNIT #: [id number] ROOM: 511 DOCTOR: JOJO CRUZ MD BIRTHDATE: [birth year] DOS: 05/14/2019 SUBJECTIVE: The patient is stable and is not having any new complaints. OBJECTIVE: VITAL SIGNS: Blood pressure is 94/61, pulse of 95, respirations 18, temperature 98.4. LUNGS: Clear. HEART: Regular. ABDOMEN: Obese. EXTREMITIES: Trace edema bilaterally. LABORATORY DATA: BMP: Glucose 90, BUN 46, creatinine 1.93. Electrolytes are normal. Urine culture E. coli, which is sensitive to the Floxin. White blood cell count 13.3, hemoglobin 7.4. ASSESSMENT AND PLAN: 1. The patient who presents with acute precipitous drop in hematocrit, has refused all workup. 2. Chronic kidney disease, stable without much changes in her kidney functions. The patient is drinking enough fluids. 3. Severe aortic stenosis, not wanting any surgery. The patient is going to be sent back in [facility] and they will make arrangements for her to go under hospice if the patient is agreeable. 4. Escherichia coli. We will start her on antibiotics. JOJO CRUZ MD CM:PNTRANS 53 JOJO CRUZ MD 05/14/19 215 interface
--- NOTE | ~2019-05-11 | PR ---
[place], [place] PROGRESS NOTE NAME: DONOVAN REYNOLDS UNIT #: [id number] ROOM: 511 DOCTOR: MONICA CARRASQUILLO MD BIRTHDATE: [birth year] DOS: 05/12/2019 SUBJECTIVE: The patient improving shortness of breath. PHYSICAL EXAMINATION: VITAL SIGNS: Blood pressure 110/52, heart rate 88 beats per minute, breathing 22 times per minute, temperature 98.6 degrees Fahrenheit. GENERAL APPEARANCE: The patient is alert and oriented x 3, in no visible distress. Generalized weakness. HEENT AND NECK: Exam within normal limits. CARDIOVASCULAR SYSTEM: Heart rate is regular in rate and rhythm. S1 and S2 normally audible. LUNGS: Clear to auscultation. ABDOMEN: Soft, nontender. No obvious organomegaly. Bowel sounds are present. EXTREMITIES: Without significant cyanosis or edema. IMPRESSION: 1. The patient has suspected GI blood loss anemia. Hemoglobin is improved with blood transfusion. She is refusing endoscopy, any GI workup. Dr. Hernandes is consulted. 2. The patient with acute over chronic diastolic type congestive heart failure with severe aortic stenosis with poor long-term prognosis. 3. Acute exacerbation of chronic obstructive pulmonary disease, being followed by Dr. Hernadez and treated with bronchodilators, corticosteroids and antibiotic. She also has continued nicotine dependence against medical advice. 4. Hypothyroidism, replaced with levothyroxine. 5. Mixed hyperlipidemia, treated with simvastatin. 6. Chronic atrial fibrillation. The patient anticoagulated with Xarelto. Heart rate is controlled. 7. Advanced adult failure to thrive. The patient to work with physical therapy. We are taking bedsore precautions. The patient is very noncompliant with treatment and management. [place], [place] PROGRESS NOTE NAME: DONOVAN REYNOLDS UNIT #: [id number] ROOM: 511 DOCTOR: MONICA CARRASQUILLO MD BIRTHDATE: [birth year] MONICA CARRASQUILLO MD CM:PNTRANS [phone] [id number] MONICA CARRASQUILLO MD 05/12/192156 interface
--- NOTE | ~2019-05-11 | PR ---
[place], [place] PROGRESS NOTE NAME: DONOVAN REYNOLDS UNIT #: [id number] ROOM: 511 DOCTOR: JOJO CRUZ MD BIRTHDATE: [birth year] DOS: 05/13/2019 SUBJECTIVE: The patient is not having any complaints and she has not had any bleeding per rectum. OBJECTIVE: VITAL SIGNS: Blood pressure is 104/57, pulse of 85, respirations 20, temperature 99.1. LUNGS: Clear. HEART: Regular. ABDOMEN: Obese, soft, nontender. EXTREMITIES: About 2+ pitting edema bilaterally. LABORATORY DATA: This morning, glucose of 91, BUN 43, creatinine 1.81, sodium 140, potassium 3.9, chloride 109. WBC count is 15.6, hemoglobin 7.2, platelets 353. ASSESSMENT AND PLAN: 1. Precipitous drop in hematocrit of unknown etiology. The patient has refused all interventions. 2. Severe aortic stenosis. Again, she does not want to undergo any procedures. We have made several appointments for her to have a transcatheter aortic valve replacement performed, but the patient has canceled multiple times. Long discussion with the patient this morning, she would rather be kept comfortable and no further procedures done. We spoke to the patient about hospice care and she would consider it. Social Service will be consulted for possible discharge back to [facility] on hospice. JOJO CRUZ MD CM:PNTRANS [id number] [id number] JOJO CRUZ MD 05/13/19 1548 interface
[~2019-05-11 11:27] MED LIST changes: +BUMETANIDE0.5 MG PO; +FUROSEMIDE40 MG PO; +Ipratropium Brom3 ML NEB; +KLOR-CON M1010 ME1 PO; +LEVOFLOXACIN250 M2 PO; +PREDNISONE10 MG PO; +XARELTO10 MG PO; +ZOCOR10 MG PO
--- NOTE | 2019-05-11 12:51 | NUR ---
Time: 125 A 73 year old FEMALE admitted to 5E under services of DR. FOREIGN JEFFRIES,MONICA Luecro Pt. arrived via ambuLANCE from ER. Chief complaint: HGB 6.9. TRISHA SERRATO
--- NOTE | 2019-05-11 13:50 | NUR ---
NOTIFIED OF NEW CONSULT. SAID TO TRANSFUSE 1 UNIT PRBC TODAY, NPO AT MIDNIGHT FOR EGD, HOLD XARELTO, REGULAR DIET. ALSO WOULD LIKE CALLED BACK WITH CXR RESULTS.
--- NOTE | 2019-05-11 13:56 | NUR ---
PT OK FOR EGD IN AM BUT REFUSES COLONOSCOPY. WILL INFORM .
--- NOTE | 2019-05-11 14:00 | NUR ---
NOTIFIED THAT MED REC IS UPDATED, SAID HE WOULD BE IN TONIGHT TO REORDER HOME MEDS. NEW ORDERS FOR RONALD TALBOT AND PHYSICAL THERAPY REC'D.
--- NOTE | 2019-05-11 14:45 | NUR ---
NOTIFIED OF NEW CONSULT. NEW ORDERS FOR ABG AND CXR RECIEVED.
--- NOTE | 2019-05-11 15:22 | NUR ---
REFUSED ABGs. EDUCATED ON IMPORTANCE. STILL REFUSED.
--- NOTE | 2019-05-11 15:35 | NUR ---
ALEX SIMPSON RN AND DR. VICTOR.
--- NOTE | 2019-05-11 16:16 | NUR ---
CALLED XRAY. SAID THEY DIDN'T KNOW WHEN THEY COULD SEND FOR THE PT. SAID THEY WOULD CALL WHEN THEY CAN. THEY ARE CURRENTLY BUSY WITH THE ER ORDERS.
--- NOTE | 2019-05-11 17:06 | NUR ---
NOTIFIED OF WOUNDS. SAID THAT WOUND CARE WOULD PUT ORDERS IN TOMORROW.
--- NOTE | 2019-05-11 17:42 | NUR ---
CRYING, SAYING SHE WANTS TO GO HOME. SAYS SHE IS "OVER IT". THROWING PILLOWS ON FLOOR. STILL CONSENTS TO BLOOD TRANSFUSION. INFORMED HER THAT WOULD BE IN TONIGHT TO SEE HER AND CAN DISCUSS DISCHARGE WITH HIM THEN. SAYS SHE DOES NOT WANT TO SEE THE DOCTOR, "I JUST WANT TO LEAVE." CALL LIGHT IN REACH.
--- NOTE | 2019-05-11 18:05 | NUR ---
BLOOD TRANSFUSION INITIATED, SEE DOCUMENTATION. VSS. CALL LIGHT IN REACH. NURSE AT BEDSIDE.
--- NOTE | 2019-05-11 18:26 | NUR ---
DECLINING TO USE TEDS/SCDS FOR PITTING EDEMA 3+ BLE. EDUCATED. STILL REFUSED. "THEY HURT SO MUCH. NO THANK YOU."
--- NOTE | 2019-05-11 18:38 | NUR ---
CONTINUES TO TOLERATE BLOOD TRANSFUSION WELL. CALL LIGHT IN REACH. WILL CONTINUE TO MONITOR.
--- NOTE | 2019-05-11 18:41 | NUR ---
PT STILL HAS NOT GONE DOWN FOR CHEST XRAY. XRAY STATES THEY ARE STILL BUSY WITH ER ORDERS.
--- NOTE | 2019-05-11 19:30 | NUR ---
IN TO SEE PT.
--- NOTE | 2019-05-11 19:41 | NUR ---
WANTING TO MAKE PT TELEMETRY. VERIFIED THAT PT WANTS TO BE DNRCC WITH MEDS ONLY. EDUCATED ABOUT DNRCC AND DNRCCA. PT STATES SHE WANTS "NOTHING DONE BUT MEDS." REFUSING TO WEAR HEART MONITOR. ALSO REFUSING EGD AT THIS TIME. STATES SHE IS "LEAVING TOMORROW. I DON'T KNOW AND HAVE NEVER MET HIM. I DO NOT WANT AN EGD. I AM LEAVING TOMORROW."
--- NOTE | 2019-05-11 19:46 | NUR ---
NOTIFIED OF CONSULT. NO NEW ORDERS REC'D.
--- NOTE | 2019-05-11 19:58 | NUR ---
TOLERATING TRANSFUSION WELL. ASKED PT AGAIN IF SHE WOULD CONSENT TO EGD IN AM. STILL REFUSING. VSS.
--- NOTE | 2019-05-11 20:03 | NUR ---
IN TO SEE PT.
--- NOTE | 2019-05-11 20:46 | NUR ---
TRANSFUSION COMPLETE. TOLERATED WELL. SLEEPING. NO SXS OF DISTRESS NOTED. CALL LIGHT IN REACH.
--- NOTE | 2019-05-11 21:15 | NUR ---
XRAY CALLING FOR PT.
--- NOTE | 2019-05-11 21:27 | NUR ---
REFUSING TO GO FOR CXR. EDUCATED ON PURPOSE AND NEED. STILL REFUSED. AGITATED AND YELLING AT STAFF. CALL LIGHT IN REACH.
--- NOTE | 2019-05-11 22:00 | NUR ---
CALLED TO PTs ROOM. STATES SHE REMEMBERS SOMETHING HAPPENING BUT CAN'T PUT HER FINGER ON IT. INFORMED HER THAT SHE WAS YELLING AT STAFF AND REFUSING TO GO FOR CXR. STATES SHE NEVER DID THIS AND THAT HER MEMORY HAS BECOME MORE OF A PROBLEM LATELY. PT NOW AGREEING TO GO FOR CXR.
--- NOTE | 2019-05-11 22:17 | NUR ---
RETURNED TO FLOOR FROM CXR.
[2019-05-11 23:26] LABS: HEMATOCRIT 32.4 % (37.0-47.0); HEMOGLOBIN 8.5 g/dl (12.0-16.0)
[2019-05-12] VITALS: BP 102/44
[2019-05-12 03:26] LABS: BILIRUBIN NEGATIVE (NEGATIVE); BLOOD 3+ (NEGATIVE); CLARITY SL CLOUDY (CLEAR); COLOR YELLOW (YELLOW); GLUCOSE NEGATIVE (NEGATIVE); KETONE NEGATIVE (NEGATIVE); LEUKO ESTERASE 2+ (NEGATIVE); NITRITE NEGATIVE (NEGATIVE); PH 5.5 (5.0-9.0); SPECIFIC GRAVITY 1.025 (1.005-1.030); UROBILINOGEN 0.2 E.U./dl (0.2-1.0)
[2019-05-12 03:34] LABS: BACTERIA 2+; WBC TNTC wbc/hpf (0-5)
--- NOTE | 2019-05-12 03:57 | NUR ---
DISCUSSED WITH PT HER REFUSAL FOR EGD/COLO. SHE IS STILL REFUSING AT THIS TIME. SHE STATES "I AGREED TO COME HERE ONLY TO GET BLOOD AND LEAVE"
--- NOTE | 2019-05-12 04:37 | NUR ---
PT RESTING IN BED AT THIS TIME WITH NO OBVIOUS SIGNS/SYMPTOMS OF PAIN OR DISCOMFORT. CALL LIGHT WITHIN REACH. WILL CONTINUE TO MONITOR.
[2019-05-12 06:56] LABS: HEMOGLOBIN 8.1 g/dl (12.0-16.0); MEAN CELL VOLUME 73.8 fl (81.0-99.0); MEAN CORPUSCULAR HGB 19.3 pg (27.0-31.0); MEAN CORPUSCULAR HGB CONC 26.1 g/dl (33.0-37.0); MEAN PLATELET VOLUME 10.9 fl (9.6-12.3); NUCLEATED RED BLOOD CELL 0.2 % (0.0-0.0); PLATELET COUNT AUTOMATED 438 10*3/uL (130-400); RED CELL DISTRI WIDTH 20.2 % (0-14.5); WHITE BLOOD COUNT 17.9 10*3/uL (4.8-10.8)
--- NOTE | 2019-05-12 07:03 | NUR ---
PT REFUSING RENAL ULTRA SOUND. EXPLAINED TO HER THE RATIONALE FOR THE ULTRASOUND AND SHE CONTINUED TO REFUSE.
[2019-05-12 07:22] LABS: POTASSIUM 4.2 mmol/L (3.5-5.1)
[2019-05-12 07:27] LABS: CREATININE 1.98 mg/dL (0.55-1.02)
[2019-05-12 08:00] VITALS: BP 138/60
[2019-05-12 08:19] LABS: TOTAL CELLS COUNTED 100 #CELLS
[2019-05-12 08:23] LABS: PLATELET SUFFICIENCY NORMAL (NORMAL)
--- NOTE | 2019-05-12 08:30 | NUR ---
Can Feeder in to talk to patient. Patient states lives at [facility]. There are 0 steps in the home. Physician: Dr. Gregory Alonso Pharmacy: [facility], print prescriptions Home health services: none Patient's level of ADLs: MODERATE ASSIST Patient has working utilities: yes DME: wheelchair, walker, O2 @ 3L nc prn Follow-up physician's appointment after d/c: the physician will see her at [facility] Does patient want to access PORTAL?: no Discharge plan discussed with patient. She lives at [facility]. She needs moderate assistance with her ADLs and ambulates with a walker or gets around in a wheelchair. Discussed home health care services and she denies any home needs at this time. She is requesting to be discharged. She states she was only sent here to get blood and Dr. Wise is not her doctor. When medically stable she will be discharged to [facility]. tradeshow worker/facility planner following. LITA VILA
[2019-05-12 08:32] LABS: ACANTHOCYTES MODERATE; BURR CELLS MODERATE; OVALOCYTES MODERATE
--- NOTE | 2019-05-12 09:33 | NUR ---
PHYSICAL THERAPY Physical Therapy evaluation attempted. Patient states, "No, get out of my room. The doctor that gave you that order is not my doctor." Will attempt PT evaluation at a later date. Thank you. Herminia Solares,PT,DPT.
--- NOTE | 2019-05-12 11:22 | NUR ---
PT HAS BEEN RUDE AND DISREPECTFUL TO STAFF. PT STATED THAT SHE WAS ONLY HER TO GET BLOOD AND THAN GO BACK HOME. PT ALSO STATED SHE WANTS HER DR. PAREDES. PT WAS EDUCATED THAT SHE NEEDED FURTHER TESTING. PT WAS EDUCATED THAT SHE NEEDED A COLONSCOPY, EGD AND RENAL U/S AND SHE REFUSED ANY FURTHER TREATMENT. DR. CARRASQUILLO AND WERE BOTH NOTIFIED. PT STATED THAT SHE WANTS TO EAT. DR. CAMACHO GAVE ORDERS TO GIVE PT A REGULAR DIET.
[2019-05-12 12:00] VITALS: BP 110/52
--- NOTE | 2019-05-12 12:46 | NUR ---
DONOVAN REYNOLDS [id number] Please refer to the physician's history and physical for past medical history, comorbid conditions, and allergies. Diagnosis: ANEMIA Jose Score: 17,AT RISK WOUND DESCRIPTIONS: Wound Number: 1 Location of the wound: right lower montiel Thickness: Partial Size: 1.1cm x 1.2cm x 0.1cm Tunneling: none Undermining: none Sinus Tract: none Presence of Exudate: Serous Amount: Light Color: Red Odor: None Periwound Skin Appearance: Edema Wound edges: approximated Pain (associated with wound): denied at time of assessment How does patient state this happened? patient unsure how this happened, If wound is on legs/feet or hands, capillary refill time, pulses, color temp, sensation: Cap refill < 3 seconds. Wound Number: 2 Location of the wound: right 5th toe Thickness: Full Size: 1.3cm x 1.3cm x <0.1cm Tunneling: none Undermining: none Sinus Tract: none Presence of Exudate: none Amount: None Color: Black Odor: None Periwound Skin Appearance: Edema Wound edges: closed. Pain (associated with wound): denied at time of assessment How does patient state this happened? patient unsure how this happened. If wound is on legs/feet or hands, capillary refill time, pulses, color temp, sensation: cap refill < 3 seconds. Patients left and right buttocks red and blanchable. No drainage or open area noted at time of assessment. Surface the patient is resting on: Position Pro SKIN PREVENTION RECOMMENDATION: 1. Pressure redistribution support surface as appropriate 2. Elevate heels 3. Remove boots/TEDS every shift and reapply 4. Head of bed 30 degrees as tolerated 5. Assess nutrition and hydration 6. Manage moisture 7. Avoid the use of containment devices while in bed 8. Use absorptive products on surfaces limit layers of linens on bed 9. Turn and reposition every 1-2 hours in bed and every 1 hour in chair as tolerated 10. Weight shifts every 15 minutes while up in chair 11. Offloading with pillows or device to keep heels elevated off bed 12. Monitor skin at least every shift 13. Inspect under medical devices twice a day WOUND TREATMENT RECOMMENDATIONS: Venous and arterial studies due to non healing wounds. Consult podiatry for RLE wounds. Partial thickness guidelines for right lower montiel: Cleanse with nss apply sureprep allow to dry apply therahoney and cover with optifoam gentle. Dressing change to left and right buttocks; Cleanse with soap and water apply hydraguard daily and prn soiling.
--- NOTE | 2019-05-12 13:27 | NUR ---
[employer] faxed updates to [facility]. -GUSTAVO GrandeW
--- NOTE | 2019-05-12 14:39 | NUR ---
Dr. Wise notified of wound care recommendations. Dr. Wise stated to leave orders to podiatry.
[2019-05-12 16:00] VITALS: BP 90/41
[2019-05-12 20:00] VITALS: BP 108/69
--- NOTE | 2019-05-12 21:30 | NUR ---
PATIENT C/O RLE DISCOMFORT. NOTED TO HAVE BALLED UP BLANKETS UNDERNEATH LEG, BLANKETS REMOVED AND PILLOW PLACED FOR ELEVATION. PATIENT STATED "IT FEELS MUCH BETTER". CALL LIGHT WITHIN REACH. WILL CONTINUE TO MONITOR
[2019-05-13] VITALS: BP 104/57
--- NOTE | 2019-05-13 02:10 | NUR ---
24 HR chart check completed.
--- NOTE | 2019-05-13 06:00 | NUR ---
PATIENT REFUSED MORNING SYNTHROID. STATES, "I WANT TO GO HOME, THE DOCTOR NEEDS TO DISCHARGE ME NOW. I WON'T TAKE MY MEDICINE. I DON'T TRUST ANYONE HERE WITH MY MEDS." ATTEMPTS TO CALM PATIENT DOWN FAILED, PATIENT WANTS NOTHING TO DO WITH NURSING STAFF AT THIS TIME. INFORMED PATIENT THAT DOCTOR WILL BE IN LATER TODAY AND SHE CAN DISCUSS DISCHARGE, PATIENT STATED OK.
[2019-05-13 06:37] LABS: CREATININE 1.81 mg/dL (0.55-1.02); PHOSPHOROUS 3.7 mg/dL (2.5-4.9); POTASSIUM 3.9 mmol/L (3.5-5.1)
[2019-05-13 06:50] LABS: BASO % 0.2 % (0.0-1.0); EOS % 0.2 % (1.0-4.0); HEMATOCRIT 26.6 % (37.0-47.0); HEMOGLOBIN 7.2 g/dl (12.0-16.0); LYMPH % 6.5 % (27.0-41.0); MEAN CELL VOLUME 72.5 fl (81.0-99.0); MEAN CORPUSCULAR HGB 19.6 pg (27.0-31.0); MEAN CORPUSCULAR HGB CONC 27.1 g/dl (33.0-37.0); MEAN PLATELET VOLUME 11.3 fl (9.6-12.3); MONO # 1.5 10*3/uL (0.1-1.0); MONO % 9.6 % (3.0-9.0); NEUT # 12.9 10*3/uL (2.3-7.9); NUCLEATED RED BLOOD CELL 0.2 % (0.0-0.0); PLATELET COUNT AUTOMATED 353 10*3/uL (130-400); RED BLOOD COUNT 3.67 10*6/uL (4.10-5.10); RED CELL DISTRI WIDTH 20.7 % (0-14.5); WHITE BLOOD COUNT 15.6 10*3/uL (4.8-10.8)
--- NOTE | 2019-05-13 07:00 | NUR ---
ARRIVED ON SHIFT, INTRODUCED TO PATIENT, BEDSIDE REPORT RECIEVED, NO NEEDS VOICED AT THIS TUME WHITE BOARD UPDATED.
[2019-05-13 08:00] VITALS: BP 92/50
[2019-05-13 08:05] LABS: VITAMIN D, 25-HYDROXY 69.5 ng/mL (30-100)
[2019-05-13 08:06] LABS: PTH INTACT 122.6 pg/mL (18.5-88.0)
--- NOTE | 2019-05-13 11:44 | NUR ---
CALL BACK RECEIVED FROM [facility] NURSE STEFANIA, SHE VERSED THAT PATIENT COULD RETURN WITH HOSPICE, BUT DID NOT WANT HOSPICE ORDERED IN HOSPITAL, THAT THEY WOULD GET IT WHEN SHE RETURNED. PREFERENCE IS FOR PATIENT TO RETURN ON WEDNESDAY, DUE TO STAFFING, I DID TELL HER THAT WE CANT HOLD A DISCHARGE WHEN PATIENT IS NOT RECEIVING TREATMENT. SHE VERSED UNDERSTANDING, I TOLD HER I WOULD LET KNOW. PLACED CALL TO DR. CRUZ AND ADVISED OF ABOVE, SHE ADVISED PATIENT WOULD BE DISCHARGED TOMORROW. CALL PLACED TO FACILITY TO ADVISE.
[2019-05-13 12:00] VITALS: BP 100/59
--- NOTE | 2019-05-13 15:38 | NUR ---
Shift chart check completed.
[2019-05-13 16:00] VITALS: BP 94/57
--- NOTE | 2019-05-13 17:32 | NUR ---
CALL PLACED TO DR. JANSEN ADVISED BLOOD SUGAR REMAINS HIGH AT 467 ADVISED TO GIVE 10 MORE UNITS OF REGULAR INSULIN AND RECHECK AGAIN IN 1 HOUR.
--- NOTE | 2019-05-13 19:25 | NUR ---
PATIENT CALLED OUT TO NURSES STATION AND STATING "I'VE FALLEN AND NEED HELP." UPON ENTERING ROOM, PATIENT WAS SITTING ON BEDSIDE COMMODE AND STATED, "WELL THAT WAS ONE WAY OF GETTING YOU GUYS IN HERE." PATIENT STATED SHE DID NOT FALL AND THAT SHE DIDN'T WANT TO WAIT ANY LONGER ON THE TOILET, PATIENT STATED SHE WAS ON FOR 25 MINUTES, PER NA PATIENT WAS ON BSC FOR 10 MINUTES AND JUST RECENTLY CALLED FOR HELP. PATIENT EDUCATION PROVIDED, STATED UNDERSTANDING. PATIENT WAS CLEANING ABD PLACED BACK INTO, CALL LIGHT LEFT WITHIN REACH.
[2019-05-13 20:00] VITALS: BP 102/54; BP 85/52
--- NOTE | 2019-05-13 20:00 | NUR ---
AUTOMATIC BP WAS LOW. MANUAL TAKE AT 102/54. DI SCREEN UPDATED
[2019-05-14] VITALS: BP 94/61
--- NOTE | 2019-05-14 | NUR ---
RESTING QUIETLY IN BED. NO DISTRESS NOTED. CALL [facility] WITHAdla CONCEPCION
--- NOTE | 2019-05-14 03:43 | NUR ---
24 HR chart check completed.
[2019-05-14 06:25] LABS: BASO % 0.3 % (0.0-1.0); EOS # 0.2 10*3/uL (0.0-0.4); EOS % 1.4 % (1.0-4.0); HEMATOCRIT 28.6 % (37.0-47.0); HEMOGLOBIN 7.4 g/dl (12.0-16.0); LYMPH % 7.4 % (27.0-41.0); MEAN CELL VOLUME 74.9 fl (81.0-99.0); MEAN CORPUSCULAR HGB 19.4 pg (27.0-31.0); MEAN CORPUSCULAR HGB CONC 25.9 g/dl (33.0-37.0); MEAN PLATELET VOLUME 10.9 fl (9.6-12.3); MONO # 1.4 10*3/uL (0.1-1.0); MONO % 10.4 % (3.0-9.0); NEUT # 10.7 10*3/uL (2.3-7.9); NUCLEATED RED BLOOD CELL 0.2 % (0.0-0.0); PLATELET COUNT AUTOMATED 348 10*3/uL (130-400); RED BLOOD COUNT 3.82 10*6/uL (4.10-5.10); RED CELL DISTRI WIDTH 20.7 % (0-14.5); WHITE BLOOD COUNT 13.3 10*3/uL (4.8-10.8)
[2019-05-14 06:51] LABS: CREATININE 1.93 mg/dL (0.55-1.02); POTASSIUM 4.1 mmol/L (3.5-5.1)
--- NOTE | 2019-05-14 07:00 | NUR ---
ARRIVED ON SHIFT, INTRODUCED TO PATIENT, BEDSIDE REPORT RECEIVED, WHITE BOARD UPDATED, NO NEEDS VOICED AT THIS TIME.
[2019-05-14 08:00] VITALS: BP 116/76
[2019-05-14] MEDS ORDERED: CEFUROXIME AXE250 MG PO (08:08)
--- NOTE | 2019-05-14 10:30 | NUR ---
CALL PLACED TO [facility], REPORT GIVEN TO STEFANIA, REVIEWED PATIENTS STAY. ADVISED PATIENT WAS TO GET HOSPICE CONSULT UPON RETURN TO FACILITY, SHE VERSED SHE WAS TOLD NOT TO CALL HOSPICE UNTIL WEDNESDAY.
--- NOTE | 2019-05-14 11:20 | NUR ---
Discharge instructions reviewed with patient and report called earlier to facility, patient receptive, reviewed and signed all discharge paperwork, verbalizes understanding. Follow-up care arranged. Written instructions given to patient/family.IV removed, all paperwork given to ambulance staff. PHILIP SOMMER
--- NOTE | 2019-05-14 11:20 | NUR ---
Shift chart check completed.
== END 2019-05-14 11:20 | disposition home or self-care (01) | DRG 811 ==
LOC: ED 11:27 → 5E 12:12 → EDHOLD 12:12 → 5E 12:26
PROVIDERS: Internal Medicine Gastroenterology; Internal Medicine Nephrology; ADMIT Internal Medicine
PROC: 30233N1 Transfusion of Nonautologous Red Blood Cells into Peripheral Vein, Percutaneous Approach (ICD-10-PCS; principal; 2019-05-11)
DX: D50.9 Iron deficiency anemia, unspecified (principal); I50.33 Acute on chronic diastolic (congestive) heart failure; N39.0 Urinary tract infection, site not specified; J44.1 Chronic obstructive pulmonary disease with (acute) exacerbation; N18.4 Chronic kidney disease, stage 4 (severe); L03.115 Cellulitis of right lower limb; J96.10 Chronic respiratory failure, unspecified whether with hypoxia or hypercapnia; R62.7 Adult failure to thrive; I35.0 Nonrheumatic aortic (valve) stenosis; Z66 Do not resuscitate; E03.9 Hypothyroidism, unspecified; Z53.29 Procedure and treatment not carried out because of patient's decision for other reasons; I95.9 Hypotension, unspecified; E78.2 Mixed hyperlipidemia; M20.5X1 Other deformities of toe(s) (acquired), right foot; F17.210 Nicotine dependence, cigarettes, uncomplicated; M81.0 Age-related osteoporosis without current pathological fracture; E66.9 Obesity, unspecified; B96.20 Unspecified Escherichia coli [E. coli] as the cause of diseases classified elsewhere; I48.2 Chronic atrial fibrillation; Z79.01 Long term (current) use of anticoagulants; Z86.718 Personal history of other venous thrombosis and embolism; Z88.1 Allergy status to other antibiotic agents; Z86.73 Personal history of transient ischemic attack (TIA), and cerebral infarction without residual deficits; I25.2 Old myocardial infarction; Z87.01 Personal history of pneumonia (recurrent); Z90.49 Acquired absence of other specified parts of digestive tract; Z90.710 Acquired absence of both cervix and uterus; Z91.19 Patient's noncompliance with other medical treatment and regimen; Z68.31 Body mass index [BMI] 31.0-31.9, adult